=== PATIENT | female | born 1960 | race African-American/Black ===

== ENCOUNTER 2020-03-16 01:06 | Observation (INO) | payer OTHER ==
[~2020-03-16] VITALS: Ht 165.1 cm; Wt 118.6 kg
[2020-03-16] MEDS ORDERED: ASPIRIN 81 MG CHEW TAB PO ONE ×2 (01:15→03:00)
[2020-03-16 01:30] LABS: BASOPHILS # (AUTO) 0.1 (0.0-0.1); BASOPHILS % 1.1 % (0.0-1.0); EOSINOPHILS # (AUTO) 0.3 (0.0-0.4); EOSINOPHILS % 3.5 % (0.0-6.0); HEMATOCRIT 42.7 % (34.2-44.1); LYMPHOCYTES # (AUTO) 4.2 (1.0-3.2); LYMPHOCYTES % 50.7 % (18.0-39.1); MEAN CORPUSCULAR HEMOGLOBIN 32.1 pg (28-32); MEAN CORPUSCULAR HGB CONC 32.8 g/dL (31-35); MEAN CORPUSCULAR VOLUME 97.9 fL (81-99); MONOCYTES # (AUTO) 0.9 (0.2-0.8); MONOCYTES % 10.8 % (4.4-11.3); NEUTROPHILS # (AUTO) 2.8 (2.1-6.9); NEUTROPHILS % 33.5 % (38.7-80.0); PLATELET COUNT 263 x10e3/uL (140-360); RED BLOOD COUNT 4.36 x10e6/uL (3.6-5.1); RED CELL DISTRIBUTION WIDTH 12.9 % (11.7-14.4)
--- OUTSIDE RECORDS SUMMARY | 2020-03-16 01:53 | XMS REPORT | Clinical Summary ---
Author Author [facility] Organization [facility] Address Unknown Phone Unavailable Care Team Providers Care Pyrometer Temperature Regulator Name Role Phone Aster Rick MD PCP [phone] Allergies No Known Allergies Medications End Date Status Medication Sig Dispensed Refills Start Date Active potassium chloride Take 1 tablet 90 tablet 3 07/07 (K-TABS) 10 mEq extended by mouth 8 release daily for tabletIndications: replacement. Essential hypertension Active atorvastatin (LIPITOR) 80 Take 1 tablet 30 tablet 3 mg tabletIndications: by mouth at 8 Pure hypercholesterolemia bedtime nightly. Active clopidogrel (PLAVIX) 75 Take 1 tablet 30 tablet 3 mg tabletIndications: by mouth 8 Coronary artery disease daily. involving coronary bypass graft of [place] heart without angina pectoris Active losartan (COZAAR) 100 mg Take 1 tablet 30 tablet 3 tabletIndications: by mouth 8 Essential hypertension daily for HTN. Increased dose. Active aspirin (ASPIRIN) 81 mg Chew and 30 tablet 2 chewable swallow 1 8 tabletIndications: tablet by Coronary artery disease mouth daily. involving coronary bypass graft of [place] heart without angina pectoris Active nicotine (NICODERM CQ) 7 Apply 1 Patch 28 Patch 0 mg/24 hr to skin as 8 patchIndications: directed Essential hypertension, daily as Coronary artery disease needed for involving coronary bypass Other graft of [place] heart (nicotine without angina pectoris craving). Active famotidine (PEPCID) 20 mg Take 1 tablet 180 tablet 1 tabletIndications: by mouth 2 9 Gastroesophageal reflux times daily disease, esophagitis as needed for presence not specified Heartburn. Active furosemide (LASIX) 20 mg Take 1 tablet 30 tablet 5 tabletIndications: by mouth 9 Coronary artery disease daily. involving coronary bypass graft of [place] heart without angina pectoris Active metoprolol succinate Take 1 tablet 30 tablet 5 (TOPROL XL) 50 mg by mouth 9 extended release daily. tabletIndications: Coronary artery disease involving coronary bypass graft of [place] heart without angina pectoris Active amLODIPine (NORVASC) 5 mg Take 1 tablet 30 tablet 5 tabletIndications: by mouth 9 Essential hypertension daily. Active Problems Problem Noted Date HLD (hyperlipidemia) 07/07/2018 GERD (gastroesophageal reflux disease) 07/07/2018 Elevated troponin 07/06/2018 Chest pain 07/06/2018 Smoking 12/29/2017 Abdominal pain 12/07/2017 Chronic hepatitis C without hepatic coma 10/11/2016 Coronary artery disease involving coronary bypass gra ft of [place] heart 03/23/2016 without angina pectoris Primary osteoarthritis of both knees 03/23/2016 Essential hypertension 03/23/2016 BMI 39.0-39.9,adult 03/23/2016 Dietary counseling and surveillance 03/23/2016 NSTEMI (non-ST elevated myocardial infa rction) Systolic and diastolic CHF w/reduced LV function, NYHA class 4 Hypertensive urgency Immunizations Name Administration Dates Next Due Influenza Vaccine, 06/23/2017 Seasonal, Injectable Influenza, 08/06/2018 Vaccine<FLUCELVAX>(Multi- Dose) PNEUMOCOCCAL 23-VALPS 06/23/2017 VACCINE 25 MCG/0.5 ML INJECTION Tdap (Tetanus Toxoid, 06/23/2017 Reduced Diphtheria Toxoid And Acellular Pertussis, Absorbed) Family History Medical History Relation Name Comments Cancer Brother Cancer Father prostate Cancer Mother Cancer Sister Relation Name Status Comments Brother Father Mother Sister Social History Date Tobacco Use Types Packs/Day Years Used Current Every Day Smoker Cigarettes 0.5 45 Smokeless Tobacco: Never Used Tobacco Cessation: Ready to Quit: No; Co unseling Given: No Drinks/Week oz/Week Comments Alcohol Use 3 Cans of beer 0 Standard drinks or equivalent 3.0 Near daily Yes Food Insecurity Answer Date Recorded Within the past 12 months, you worried that your Never du e 11/05/2018 food would run out before you got money to buy more. Within the past 12 months, the food you bought Never true 11/05/2018 just didn't last and you didn't have mo tan to get more. Sex Assigned at Date Recorded Not on file Industry Job Start Date Occupation Not on file Not on file Not on file Travel End Travel History Travel Start No recent travel history available. Last Filed Vital Signs Not on file Plan of Treatment Health Maintenance Due Date Last Done Comments Breast Cancer Scrn 08/08/2019 08/08/2018, (Yearly) 07/25/2017, 06/11/2016 CORONARY ARTERY DISEASE 11/06/2019 11/05/2018, AGE 18 AND UP 01/02/2018, 05/18/2016 IMM Influenza Seasonal 04/23/2020 08/06/2018, Apr to September (>/= 19 yrs) 06/23/2017 Colonoscopy 10yr 12/05/2023 12/04/2013 Results Not on fileafter 03/16/2019 Insurance Type Payer Benefit Subscriber ID Effective Phone Address Plan / Dates Group [facility] xxxxxxxxxxxx 2018-P [address] [facility] [id number] [facility] [place] [id number] Advance Directives Date Inactivated Comments Code Status Date Activated 07/07/2018 5:29 PM Full Code 07/06/2018 11:31 PM
--- OUTSIDE RECORDS SUMMARY | 2020-03-16 01:53 | XMS REPORT | Continuity of Care Document ---
Author Author Fabrice Robertson LICHA LANGLEY Organization [facility] [employer] Address Unknown Phone Unavailable Care Team Providers Care Internal Audit Director Name Role Phone [facility] Information [employer] Unavailable Un available Problems Problem Status Onset Date Classification Date Reported Comments Source V76.12 - SCREEN MAMMOGRA Active 10/05/2011 [facility] Medications No Data Provided for This Section Allergies, Adverse Reactions, Alerts No Known Medication Allergies Immunizations No Data Provided for This Section Results No Data Provided for This Section Pathology Reports No Data Provided for This Section Diagnostic Reports Report Value Date Source Digital Mammo Screening [place] MA - DIGITAL MAMMO SCREENING [place] BILATERAL DIGITAL SCREENING MAMMOGRAM WITH CAD: 12/20/2012 CLINICAL: Screening. Current study was evaluated with a Computer Aided Detection (CAD) system. Comparison is made to exams dated: 10/14/2011 mammogram - [facility] - Outpatient Imaging and 03/20/2009 mammogram - [facility] Outpatient Imaging Department. The tissue of both breasts is predominantly fatty. There is a benign calcification in the right breast. No significant masses, calcifications, or other findings are seen in either breast. There has been no significant interval change. IMPRESSION: BENIGN There is no mammographic evidence of malignancy. A screening mammogram in one year is recommended. SUMMARY: SL: 15. Yasemin mathias/bill:12/21/2012 10:23:03 [employer]: Kymberly Solorzano [facility] letter sent: Normal exam Mammogram BI-RADS: 2 Benign 12/20/2012 ALANA Estevez Pelvis without contrast MRI REASON FOR EXAM: 789.00. Left lower quadrant pain. COMPARISON: Pelvic ultrasound 03/20/2009. TECHNIQUE: Unenhanced axial, coronal and sagittal MR images of the pelvis were performed. FINDINGS: The uterus and left ovary are surgically absent. The right ovary measures a maximal length of 2.5 cm and contains a 1.7 cm simple appearing cyst. (A 1.6 cm cyst/dominant follicle was reported in the right ovary on the prior pelvic ultrasound.) Mild diverticulosis of the sigmoid colon without demonstrable acute diverticulitis. Small nonspecific inguinal lymph nodes the largest measuring approximately 1 cm in short axis bilaterally. Mild asymmetric fatty prominence of the left inguinal ring concerning for a small inguinal hernia containing fat measuring a maximal diameter of approximately 2.5 cm. Tiny umbilical hernia containing fat measuring a maximal width of approximately 5 mm the more anterior extent not imaged on this examination. Degenerative changes of the visualized lower lumbar spine, bilateral sacroiliac joints, left superolateral acetabulum and pubic symphysis. No demonstrable abnormality of the partially distended urinary bladder, urethra, vagina or visualized musculature. No demonstrable pelvic mass or ascites. IMPRESSION: 1. Status post hysterectomy and left oop horectomy. 2. There is a 1.7 cm right ovarian cyst. A short interval follow-up pelvic ultrasound is suggested for reassessment. 3. Mild sigmoid diverticulosis. 4. Small nonspecific bilateral inguinal lymph nodes. 5. Small left inguinal hernia containing fat. 6. Tiny umbilical hernia containing fat. 7. Degenerative changes of the lumbar sp ine, bilateral sacroiliac joints, left superolateral acetabulum and pubic symphysis. Please correlate clinically and consider follow-up imaging as indicated. Dictation code: 15 12/20/2012 AARON Estevez Consultation Notes No Data Provided for This Section Discharge Summaries No Data Provided for This Section History and Physicals No Data Provided for This Section Vital Signs No Data Provided for This Section Encounters Location Location Details Encounter Type Encounter Number Reason For Visit Attending Provider ADM Date DC Date Status Source Outpatient [id number] V76.12 - SCREEN M ALESSANDRO CROSS 10/14/2011 Active [facility] Procedures No Data Provided for This Section Assessment and Plan No Data Provided for This Section Plan of Care No Data Provided for This Section Social History No Data Provided for This Section Family History No Data Provided for This Section Advance Directives No Data Provided for This Section Functional Status No Data Provided for This Section
--- OUTSIDE RECORDS SUMMARY | 2020-03-16 01:53 | XMS REPORT | Continuity of Care Document ---
Author Author [facility] t Organization [facility] t Address [address] [place] [address] Phone Unavailable Care Team Providers Care Pantry Worker Name Role Phone Merline PAEZ, Jaqui Rodarte PCP [phone] Patt PAEZ, Bonifacio Attphys Alonzo RN, A Lucy Attphys Unavailable Klaudia PAEZ, Deisy Mcclellan Attphys Funmi PAEZ, Adryan Attphys Catarino PAEZ, Layo Ryan Attphys Patt PAEZ, Jennifer Valdovinos Attphys [phone] DEISY RUDOLPH Attphys Unavailable JENNIFER BELTRE Admphys Unavailable Problems Condition Name Condition Details Condition Category Status Onset Date Resolution Date Last Treatment Date Treating Clinician Comments Source NSTEMI (non-ST elevated myocardial infarction) NSTEMI (non-ST elevated myocardial infarction) Disease Active 2019-10-17 00:00:00 [facility] HLD (hyperlipidemia) HLD (hyperlipidemia) Disease Active 00:00:00 [facility] GERD (gastroesophageal reflux disease) GERD (gastroesophagea l reflux disease) Disease Active 2018-07-07 00:00:00 [facility] Elevated troponin Elevated troponin Disease Active 2018-07-06 00:00:00 [facility] Chest pain Chest pain Disease Active 2018-07-06 00:00:00 [facility] Smoking Smoking Disease Active 2017-12-29 00:00:00 [facility] Abdominal pain Abdominal pain Disease Active 2017-12-07 00:00:00 [facility] Chronic hepatitis C without hepatic coma Chronic hepat itis C without hepatic coma Disease Active 2016-10-11 00:00:00 [facility] Coronary artery disease involving vang ry bypass graft of [place] heart without angina pectoris Coronary artery disease involving vang ry bypass graft of [place] heart without angina pectoris Disease Active 2016-03-23 00:00:00 [facility] Primary osteoarthritis of both knees Primary osteoarthritis of both knees Disease Active 2016-03-23 00:00:00 [facility] Essential hypertension Essential hypertension Disease Active 2016-03-23 00:00:00 [facility] BMI 39.0-39.9,adult BMI 39.0-39.9,adult Disease Active 2016-03-23 00:00 :00 [facility] Dietary counseling and surveillance Dietary counseling and surve illance Disease Active 2016-03-23 00:00:00 [facility] 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 Family History Family Member Diagnosis Comments Start Date Stop Date Source Natural brother Cancer [facility] alth Natural brother Diabetes [facility] Natural brother Hypertension [facility] Natural father Cancer [facility] Natural mother [facility] Natural sister Cancer [facility] Natural sister Diabetes [facility] Natural sister Hypertension [facility] Natural daughter Unremarkable [facility] Natural son Asthma [facility] Social History Social Habit Start Date Stop Date Quantity Comments Source History of tobacco use Cigarette Smoker [facility] Sex Assigned At [facility] Cigarettes smoked current (pack per day) - Reported 00:00:00 2019-10-18 00:00:00 [facility] Cigarette pack-years 2019-10-18 00:00:00 2019-10-18 00:00:00 [facility] Alcohol intake 2018-12-26 00:00:00 2018-12-26 00:00:00 Current drinker of alcohol (finding) [facility] SDOH Food Worry 2018-11-05 00:00:00 2018-11-05 00:00:00 1 [facility] SDAL Food Scarcity 2018-11-05 00:00:00 2018-11-05 00:00:00 1 [facility] Alcohol Comment 2017-12-07 00:00:00 2017-12-07 00:00:00 Near daily [facility] Smoking Status Start Date Stop Date Source Current every day smoker 2019-10-18 00:00:00 [facility] Medications Ordered Medication Name Filled Medication Name Start Date Stop Da te Current Medication? Ordering Clinician Indication Dosage Frequency Signature (SIG) Comments Components Source prasugreL (EFFIENT) 10 mg Tab tablet 2019-10-22 00:00:00 Ye s 10mg QD Take 1 tablet (10 mg total) by mouth daily. [facility] aspirin 81 MG EC tablet 2019-10-22 00:00:00 2020-10-21 23:59:00 No 81mg QD Take 1 tablet (81 mg total) by mouth daily. [facility] isosorbide mononitrate (IMDUR) 60 MG 24 hr tablet 2019-10-22 00:00:00 2020-10-21 23:59:00 No 60mg QD Take 1 tab let (60 mg total) by mouth daily. [facility] atorvastatin (LIPITOR) 40 MG tablet 2019-10-21 00:00:0 0 2020-10-20 23:59:00 No 40mg QD Take 1 tablet (40 mg total) by mouth nig htly. [facility] carvediloL (COREG) 6.25 MG tablet 2019-10-21 00:00:00 2020 23:59:00 No 6.25mg Q.5D Take 1 tablet (6.25 mg total) by mouth 2 (two) times daily. [facility] ranolazine (RANEXA) 500 MG 12 hr tablet 00:00:00 2020-10-20 23:59:00 No 500mg Q.5D Take 1 tablet (500 mg total) by mouth 2 (two) times daily. [facility] traMADoL (ULTRAM) 50 mg tablet 2019-10-21 00:00:00 2019-10-31 23 :59:00 No 50mg Take 1 tablet (50 mg total) by mouth every 6 (six) hours as needed for Pain for up to 10 days. Max Daily Amount: 200 mg [facility] furosemide (LASIX) 20 mg tablet 2018-11-05 00:00:00 Yes Coronary artery disease involving coronary bypass graft of [place] heart without angina pectoris 20mg QD Take 1 tablet by mouth daily. [facility] metoprolol succinate (TOPROL XL) 50 mg extended release tabl et 2018-11-05 00:00:00 Yes Coronary artery disease involving coronary bypass graft of [place] heart without angina pectoris 50mg QD Take 1 tablet by mout h daily. [facility] amLODIPine (NORVASC) 5 mg tablet 2018-11-05 00:00:00 Yes Essential hypertension 5mg QD Take 1 tablet by mouth daily. [facility] famotidine (PEPCID) 20 mg tablet 2018-08-06 00:00:00 Yes Gastroesophageal reflux disease, esophagitis presence not specified 20mg Take 1 tablet by mouth 2 times daily as needed for Heartburn. [facility] aspirin (ASPIRIN) 81 mg chewable tablet 2018-07-08 00:00:00 Yes Coronary artery disease involving coronary bypass graft of [place] heart without angina pectoris 81mg QD Chew and swallow 1 tablet by mouth daily. [facility] potassium chloride (K-TABS) 10 mEq extended release tablet 2018-07-07 00:00:00 Yes Essential hypertension 10meq QD Take 1 tablet by mouth daily for replacement. [facility] atorvastatin (LIPITOR) 80 mg tablet 2018-07-07 00:00:00 Yes Pure hypercholesterolemia 80mg Take 1 tablet by mouth at bedtime nig htly. [facility] clopidogrel (PLAVIX) 75 mg tablet 2018-07-07 00:00:00 Yes Coronary artery disease involving coronary bypass graft of [place] heart without angina pectoris 75mg QD Take 1 tablet by mouth daily. [facility] losartan (COZAAR) 100 mg tablet 2018-07-07 00:00:00 Yes Essential hypertension 100mg QD Take 1 tablet by mouth daily for HTN. Increas ed dose. [facility] nicotine (NICODERM CQ) 7 mg/24 hr patch 2018-07-07 00:00:00 Yes Coronary artery disease involving coronary bypass graft of [place] heart without angina pectoris 1{patch} Apply 1 Patch to ski n as directed daily as needed for Other (nicotine craving). [facility] magnesium hydroxide (MILK OF MAGNESIA) 400 mg/5 mL Susp 2014-07-16 00:00:00 Yes 30mL Take 30 mLs by mouth daily as needed. [facility] Immunizations Ordered Immunization Name Filled Immunization Name Date Status Comments Source Influenza, Vaccine<FLUCELVAX>(Multi-Dose) 2018-08-06 00:00 :00 Completed [facility] Influenza Vaccine, Seasonal, Injectable 2017-06-23 00:00:0 0 Completed [facility] PNEUMOCOCCAL 23-VALPS VACCINE 25 MCG/0.5 ML INJECTION 2017-06-23 00:00:00 Completed [facility] Tdap (Tetanus Toxoid, Reduced Diphtheria Toxoid And Acellular Pertussis, Absorbed) 2017-06-23 00:00:[address] [facility] Vital Signs Vital Name Observation Time Observation Value Comments Source Systolic blood pressure 2019-10-21 07:30:00 149 mm[Hg] [facility] Diastolic blood pressure 2019-10-21 07:30:00 87 mm[Hg] [facility] Heart rate 2019-10-21 07:30:00 68 /min [facility] Body temperature 2019-10-21 07:30:00 36.44 [place] [facility] Respiratory rate 2019-10-21 07:30:00 18 /min [facility] Oxygen saturation in Arterial blood by Pulse oximetry 10-20 07:30:00 94 [facility] Procedure Date / Time Performed Performing Clinician Sourc e VASCULAR DIAGRAM -SCAN 2020-01-15 15:25:17 Provider, Default [facility] VASCULAR DIAGRAM -SCAN 2019-10-24 12:51:23 Provider, Default [facility] CARDIAC CATH REPORT - SCAN 2019-10-22 10:20:58 Provider, Default Scanning [facility] REPORT OF PROCEDURE - ENDOSCOPY SCAN 2019-10-21 13:20:36 Pro vider, Default Scanning [facility] APTT 2019-10-21 03:51:00 Sen [facility] BASIC METABOLIC PANEL (7) 2019-10-21 03:51:00 [place], [facility] CBC (HEMOGRAM ONLY) 2019-10-21 03:51:00 [place], [facility] MAGNESIUM 2019-10-21 03:51:00 [place], [facility] PHOSPHORUS 2019-10-21 03:51:00 [place], [facility] APTT 2019-10-20 06:16:00 Sen [facility] BASIC METABOLIC PANEL (7) 2019-10-20 06:16:00 [place], [facility] CBC (HEMOGRAM ONLY) 2019-10-20 06:16:00 [place], [facility] MAGNESIUM 2019-10-20 06:16:00 [place], [facility] PHOSPHORUS 2019-10-20 06:16:00 [place], [facility] APTT 2019-10-19 23:36:00 Sen [facility] APTT 2019-10-19 16:56:00 Sen [facility] APTT 2019-10-19 10:20:00 Sen, [facility] APTT 2019-10-19 08:[facility] 2019-10-19 04:18:00 [facility], [facility] CBC (HEMOGRAM ONLY) 2019-10-19 04:18:00 [facility], [facility] TROPONIN I 2019-10-19 04:18:00 [place], [facility] MAGNESIUM 2019-10-19 04:18:00 [facility], [facility] PHOSPHORUS 2019-10-19 04:18:00 [facility], [facility] PROTHROMBIN TIME/INR 2019-10-19 04:18:00 [facility], [facility] APTT 2019-10-19 04:18:00 Itz Dela Cruz [facility] ECHOCARDIOGRAM REPORT - SCAN 2019-10-18 21:12:09 Manish Abrams lt [facility] TROPONIN I 2019-10-18 18:28:00 Eleuterio Rudolph [facility] APTT 2019-10-18 18:28:00 [facility] POCT-GLUCOSE METER 2019-10-18 16:23:00 [facility] POCT-GLUCOSE METER 2019-10-18 11:55:00 [facility] TROPONIN I 2019-10-18 11:28:00 Franki Llanos [facility] APTT 2019-10-18 11:28:00 Willi [facility] 2D ECHO W/ DOPPLER (CW/PW/COLOR) 2019-10-18 07:39:18 Vipul Beltre [facility] BASIC METABOLIC PANEL (7) 2019-10-18 04:41:00 Franki Llanos [facility] APTT 2019-10-18 04:41:00 Willi [facility] CBC W/PLT COUNT & AUTO DIFFERENTIAL 2019-10-18 04:41:00 Franki Llanos [facility] TROPONIN I 2019-10-18 00:03:00 Franki Llanos [facility] APTT 2019-10-18 00:03:00 Willi [facility] APTT 2019-10-17 21:32:00 Willi [facility] POCT-ACT 2019-10-17 20:39:00 [facility] POCT-GLUCOSE METER 2019-10-17 18:51:00 [facility] B-TYPE NATRIURETIC FACTOR (BNP) 2019-10-17 18:46:00 Millie Llanos [facility] L CATH & PCI 2019-10-17 18:15:00 Bonifacio Beltre [facility] TROPONIN I 2019-10-17 16:12:00 Eleuterio Rudolph [facility] XR CHEST 1 VIEW PORTABLE/BEDSIDE 2019-10-17 11:30:00 [facility]laudia [facility] BASIC METABOLIC PANEL (7) 2019-10-17 10:36:00 [facility]laudia [facility] MAGNESIUM 2019-10-17 10:36:00 Klaudia, [facility] TROPONIN I 2019-10-17 10:36:00 Klaudia [facility] CBC W/PLT COUNT & AUTO DIFFERENTIAL 2019-10-17 10:36:00 Jorge L Rudolph [facility] ECG 12-LEAD 2019-10-17 10:07:43 Unknown, Hl7 Doctor [facility] Plan of Care Planned Activity Planned Date Details Comments Source Future Scheduled Test 2023-12-05 00:00:00 Screening for aaron gnant neoplasm of colon (procedure) [code = 260035170] [facility] Future Scheduled Test 2020-04-23 00:00:00 IMM Influenza Seas onal Apr to September (>/= 19 yrs) [code = IMM Influenza Seasonal Apr to September (>/= 19 yrs)] [facility] Scheduled Test 2019-11-06 00:00:00 CORONARY ARTERY DI SEASE AGE 18 AND UP [code = CORONARY ARTERY DISEASE AGE 18 AND UP] [facility] Scheduled Test 2019-08-08 00:00:00 Breast Cancer Scrn (Yearly) [code = Breast Cancer Scrn (Yearly)] [facility] Encounters Start Date/Time End Date/Time Encounter Type Admission Type [facility] Care Department Encounter ID Source 2018-07-07 06:39:16 Inpatient [facility] [id number] M[facility] 2020-02-18 13:01:23 2020-02-18 14:15:36 Office Visit Bonifacio Beltre [facility] [id number] 2018-11-05 10:01:16 2018-11-05 10:01:16 Outpatient [facility] [id number] [facility] 2018-11-05 09:15:34 2018-11-05 09:15:34 Outpatient [facility] [id number] [facility] 2018-08-15 00:00:00 2018-08-15 00:00:00 Outpatient [facility] [id number] [facility] 2018-08-08 11:25:22 2018-08-08 11:25:22 Outpatient [facility] [id number] [facility] 2018-08-08 00:00:00 2018-08-08 00:00:00 Outpatient [facility] [id number] [facility] 2018-08-08 00:00:00 2018-08-08 00:00:00 Outpatient [facility] [id number] [facility] 2018-08-07 00:00:00 2018-08-07 00:00:00 Outpatient [facility] [id number] M[facility] 2018-08-06 14:10:06 2018-08-06 14:10:06 Outpatient [facility] [id number] [facility] 2018-07-06 12:53:49 2018-07-06 12:53:49 Emergency [facility] [id number] M[facility] 2018-07-06 11:25:51 2018-07-06 11:25:51 Inpatient [facility] [id number] [facility] 2018-07-06 09:49:21 2018-07-06 09:49:21 Outpatient [facility] [id number] [facility] 2018-05-29 00:00:00 2018-05-29 00:00:00 Outpatient [facility] [id number] [facility] 2018-03-28 00:00:00 2018-03-28 00:00:00 Outpatient [facility] [id number] M[facility] 2018-03-20 00:00:00 2018-03-20 00:00:00 Outpatient [facility] [id number] [facility] 2018-03-16 00:00:00 2018-03-16 00:00:00 Outpatient [facility] [id number] [facility] 2018-03-09 00:00:00 2018-03-09 00:00:00 Outpatient [facility] [id number] [facility] 2018-01-02 13:42:40 2018-01-02 13:42:40 Outpatient [facility] [id number] [facility] 2018-01-02 13:02:19 2018-01-02 13:02:19 Outpatient [facility] [id number] [facility] 2017-12-29 14:57:25 2017-12-29 14:57:25 Outpatient [facility] [id number] [facility] 2017-12-07 06:07:29 2017-12-07 06:07:29 Emergency [facility] [id number] M[facility] 2017-12-07 03:50:04 2017-12-07 03:50:04 Emergency [facility] [id number] [facility] 2017-12-05 14:54:21 2017-12-05 14:54:21 Outpatient [facility] [id number] [facility] 2017-11-30 14:14:45 2017-11-30 14:14:45 Outpatient [facility] [id number] [facility] 2017-09-21 00:00:00 2017-09-21 00:00:00 Outpatient [facility] [id number] [facility] 2017-07-25 10:02:49 2017-07-25 10:02:49 Outpatient [facility] [id number] M[facility] 2017-07-04 00:00:00 2017-07-04 00:00:00 Outpatient [facility] [id number] M[facility] 2017-06-23 13:08:32 2017-06-23 13:08:32 Outpatient [facility] [id number] M[facility] 2017-06-13 07:39:47 2017-06-13 07:39:47 Outpatient [facility] [id number] M[facility] 2017-06-08 14:00:34 2017-06-08 14:00:34 Outpatient [facility] [id number] M[facility] Results Test Description Test Time Test Comments Results Result Comments Source Basic Metabolic Panel 2019-10-21 04:29:00 Test Item Sodium (test code = 2951-2) 137 meq/L 136-145 Potassium (test code = 2823-3) 4.0 meq/L 3.5-5.1 Chloride (test code = 2075-0) 107 meq/L 98-107 CO2 (test code = 8-9) 23 meq/L 22-29 BUN (test code = 3094-0) 16 mg/dL 7-21 Creatinine (test code = 2160-0) 0.99 mg/dL 0.57-1.25 Glucose (test code = 2345-7) 87 mg/dL 70-105 Calcium (test code = 37793-4) 8.6 mg/dL 8.4-10.2 EGFR (test code = 10303-0) 70 mL/min/1.73 sq m ESTIMATED GFR IS NOT ACCURATE CREATININE CLEARANCE IN PREDICTING GLOMERULAR FILTRATION RATE. ESTIMATED GFR IS NOT APPLICABLE FOR DIALYSIS PATIENTS. MICHELLE (test code = MICHELLE) Electronic Equipment Repairer ID - LUIS CARLOS M [facility] 04:[facility]00* Test Item Value Reference Range Interpretation Comments Magnesium (test code = 55208-4) 1.9 mg/dL 1.6-2.6 MICHELLE (test code = MICHELLE) Electronic Equipment Repairer ID - LUIS CARLOS M Lab Interpretation (test code = 69192-8) Normal [facility] 04:29:00* Test Item Value Reference Range Interpretation Comments Phosphorus (test code = 2777-1) 4.2 mg/dL 2.3-4.7 MICHELLE (test code = MICHELLE) Electronic Equipment Repairer ID - LUIS CARLOS M Lab Interpretation (test code = 62164-7) Normal [facility]30 04:29:00* Test Item Value Reference Range Interpretation Comments PHOSPHORUS (BEAKER) (test code = 604) 4.2 mg/dL 2.3-4.7 Electronic Equipment Repairer ID - LUIS CARLOS [id number] 04:29:00* Test Item Value Reference Range Interpretation Comments MAGNESIUM (BEAKER) (test code = 627) 1.9 mg/dL 1.6-2.6 Electronic Equipment Repairer KELLEE ALDRIDGE [employer] METABOLIC [id number] 04:29:00* Test Item Value Reference Range Interpretation Comments SODIUM (BEAKER) (test code = 381) 137 meq/L 136-145 POTASSIUM (BEAKER) (test code = 379) 4.0 meq/L 3.5-5.1 CHLORIDE (BEAKER) (test code = 382) 107 meq/L 98-107 CO2 (BEAKER) (test code = 355) 23 meq/L 22-29 BLOOD UREA NITROGEN (BEAKER) (test code = 354) 16 mg/dL 7-21 CREATININE (BEAKER) (test code = 358) 0.99 mg/dL 0.57-1.25 GLUCOSE RANDOM (BEAKER) (test code = 652) 87 mg/dL 70-105 CALCIUM (BEAKER) (test code = 697) 8.6 mg/dL 8.4-10.2 EGFR (BEAKER) (test code = 1092) 70 mL/min/1.73 sq m ESTIMATED GFR IS NOT ACCURATE CREATININE CLEARANCE IN PREDICTING GLOMERULAR FILTRATION RATE. ESTIMATED GFR IS NOT APPLICABLE FOR DIALYSIS PATIENTS. Electronic Equipment Repairer ID Alisa ALDRIDGE [id number] 04:10:00* Test Item Value Reference Range Interpretation Comments PTT (test code = 46306-6) 30.6 22.5- 36.0 seconds Lab Interpretation (test code = 83542-2) [facility]* Test Item Value Reference Range Interpretation Comments PARTIAL THROMBOPLASTIN TIME (BEAKER) (test code = 760) 30.6 seconds 22.5-36.0 CBC (Hemogram only)2019-10-21 04:03:00* Test Item Value Reference Range Interpretation Comments WBC (test code = 6690-2) 8.9 3.5- 10.5 K/L RBC (test code = 789-8) 4.08 3.93- 5.22 M/L MCHC (test code = 786-4) 32.2 32.2- 35.5 GM/DL Hematocrit (test code = 4544-3) 39.1 % 34.1-44.9 MCV (test code = 787-2) 95.8 fL 79.4-94.8 H MCH (test code = 785-6) 30.9 pg 25.6-32.2 RDW (test code = 788-0) 12.6 % 11.7-14.4 Platelets (test code = 777-3) 222 150- 450 K/CU MM MPV (test code = 97404-5) 11.3 fL 9.4-12.3 nRBC (test code = 413) 0 0- 0 /100 WBC Lab Interpretation (test code = 62254-4) Abnormal [facility] (HEMOGRAM ONLY)2019-10-21 04:03:00* Test Item Value Reference Range Interpretation Comments WHITE BLOOD CELL COUNT (BEAKER) (test code = 775) 8.9 K/ L 3.5- 10.5 RED BLOOD CELL COUNT (BEAKER) (test code = 761) 4.08 M/ L 3.93-5 .22 HEMOGLOBIN (BEAKER) (test code = 410) 12.6 GM/DL 11.2-15.7 HEMATOCRIT (BEAKER) (test code = 411) 39.1 % 34.1-44.9 MEAN CORPUSCULAR VOLUME (BEAKER) (test code = 753) 95.8 fL 79. 4-94.8 H MEAN CORPUSCULAR HEMOGLOBIN (BEAKER) (test code = 751) 30.9 pg 25.6-32.2 MEAN CORPUSCULAR HEMOGLOBIN CONC (BEAKER) (test code = 752) 32.2 GM/DL 32.2-35.5 RED CELL DISTRIBUTION WIDTH (BEAKER) (test code = 412) 12.6 % 11.7-14.4 PLATELET COUNT (BEAKER) (test code = 756) 222 K/CU MM 150-450 MEAN PLATELET VOLUME (BEAKER) (test code = 754) 11.3 fL 9.4-12 .3 NUCLEATED RED BLOOD CELLS (BEAKER) (test code = 413) 0 /100 WBC 0 -0 [id number] 07:05:00* Test Item Value Reference Range Interpretation Comments PHOSPHORUS (BEAKER) (test code = 604) 4.2 mg/dL 2.3-4.7 Electronic Equipment Repairer ID - LUIS CARLOS [id number] 07:05:00* Test Item Value Reference Range Interpretation Comments MAGNESIUM (BEAKER) (test code = 627) 2.0 mg/dL 1.6-2.6 Electronic Equipment Repairer ID - LUIS CARLOS MBASIC METABOLIC [id number] 07:05:00* Test Item Value Reference Range Interpretation Comments SODIUM (BEAKER) (test code = 381) 139 meq/L 136-145 POTASSIUM (BEAKER) (test code = 379) 3.7 meq/L 3.5-5.1 CHLORIDE (BEAKER) (test code = 382) 108 meq/L 98-107 H CO2 (BEAKER) (test code = 355) 24 meq/L 22-29 BLOOD UREA NITROGEN (BEAKER) (test code = 354) 20 mg/dL 7-21 CREATININE (BEAKER) (test code = 358) 1.01 mg/dL 0.57-1.25 GLUCOSE RANDOM (BEAKER) (test code = 652) 89 mg/dL 70-105 CALCIUM (BEAKER) (test code = 697) 8.7 mg/dL 8.4-10.2 EGFR (BEAKER) (test code = 1092) 68 mL/min/1.73 sq m ESTIMATED GFR IS NOT ACCURATE CREATININE CLEARANCE IN PREDICTING GLOMERULAR FILTRATION RATE. ESTIMATED GFR IS NOT APPLICABLE FOR DIALYSIS PATIENTS. Electronic Equipment Repairer ID - LUIS CARLOS [id number] 06:56:00* Test Item Value Reference Range Interpretation Comments PARTIAL THROMBOPLASTIN TIME (BEAKER) (test code = 760) 94.3 seconds 22.5-36.0 H CBC (HEMOGRAM ONLY)2019-10-20 06:49:00* Test Item Value Reference Range Interpretation Comments WHITE BLOOD CELL COUNT (BEAKER) (test code = 775) 8.7 K/ L 3.5- 10.5 RED BLOOD CELL COUNT (BEAKER) (test code = 761) 4.16 M/ L 3.93-5 .22 HEMOGLOBIN (BEAKER) (test code = 410) 13.3 GM/DL 11.2-15.7 HEMATOCRIT (BEAKER) (test code = 411) 40.1 % 34.1-44.9 MEAN CORPUSCULAR VOLUME (BEAKER) (test code = 753) 96.4 fL 79. 4-94.8 H MEAN CORPUSCULAR HEMOGLOBIN (BEAKER) (test code = 751) 32.0 pg 25.6-32.2 MEAN CORPUSCULAR HEMOGLOBIN CONC (BEAKER) (test code = 752) 33.2 GM/DL 32.2-35.5 RED CELL DISTRIBUTION WIDTH (BEAKER) (test code = 412) 12.8 % 11.7-14.4 PLATELET COUNT (BEAKER) (test code = 756) 188 K/CU MM 150-450 MEAN PLATELET VOLUME (BEAKER) (test code = 754) 11.5 fL 9.4-12 .3 NUCLEATED RED BLOOD CELLS (BEAKER) (test code = 413) 0 /100 WBC 0 -0 [id number] 00:24:00* Test Item Value Reference Range Interpretation Comments PARTIAL THROMBOPLASTIN TIME (BEAKER) (test code = 760) 65.9 seconds 22.5-36.0 H [id number] 17:25:00* Test Item Value Reference Range Interpretation Comments PARTIAL THROMBOPLASTIN TIME (BEAKER) (test code = 760) 62.3 seconds 22.5-36.0 H [id number] 10:39:00* Test Item Value Reference Range Interpretation Comments PARTIAL THROMBOPLASTIN TIME (BEAKER) (test code = 760) 67.1 seconds 22.5-36.0 H POC-Glucose [id number] 08:56:00* Test Item Value Reference Range Interpretation Comments POC-Glucose Meter (test code = 1538) 95 mg/dL 70-110 : Notified RN/MD: TESTED AT [address], [address]: Electronic Equipment Repairer/Appliance Line Assembler ID = [id number] for NAVYA HOLT Lab Interpretation (test code = 36050-2) [facility] [id number] 08:56:00* Test Item Value Reference Range Interpretation Comments POC-GLUCOSE METER (BEAKER) (test code = 1538) 95 mg/dL 70-110 : Notified RN/MD: TESTED AT [address], [address]: Electronic Equipment Repairer/Appliance Line Assembler ID = [id number] for NAVYA HOLT [id number] 08:48:00* Test Item Value Reference Range Interpretation Comments PARTIAL THROMBOPLASTIN TIME (BEAKER) (test code = 760) 126.4 sec onds 22.5-36.0 H [id number] 07:35:00* Test Item Value Reference Range Interpretation Comments PARTIAL THROMBOPLASTIN TIME (BEAKER) (test code = 760) 163.5 sec onds 22.5-36.0 HH TROPONIN [id number] 05:39:00* Test Item Value Reference Range Interpretation Comments TROPONIN I (BEAKER) (test code = 397) 4.77 ng/mL 0.00-0.03 HH Troponin I (TnI) levels must be interpreted in the context of the presenting sym ptoms and the clinical findings. Elevated TnI levels indicate myocardial damage, but are not specific for ischemic heart disease. Elevated TnI levels are seen in patients with other cardiac conditions (including myocarditis and congestive h eart failure), and slight TnI elevations occur in patients with other conditions , including sepsis, renal failure, acidosis, acute neurological disease, and per sistent tachyarrhythmia.Electronic Equipment Repairer ID - PIAYA LTroponin [id number] 05:38:00* Test Item Value Reference Range Interpretation Comments Troponin I (test code = 52459-5) 4.93 ng/mL 0-0.03 HH MICHELLE (test code = MICHELLE) Troponin I (TnI) levels must be interpreted in the context of the presenting symptoms and the clinical findings. Elevated TnI levels indicate myocardial damage, but are not specific for ischemic heart disease. Elevated TnI levels are seen in patients with other cardiac conditions (including myocarditis and congestive heart failure), and slight TnI elevations occur in patients with other conditions, including sepsis, renal failure, acidosis, acute neurological disease, and persistent tachyarrhythmia.Electronic Equipment Repairer ID - PIAYA L Lab Interpretation (test code = 98029-8) [facility] [id number] 05:38:00* Test Item Value Reference Range Interpretation Comments TROPONIN I (BEAKER) (test code = 397) 4.93 ng/mL 0.00-0.03 HH Troponin I (TnI) levels must be interpreted in the context of the presenting sym ptoms and the clinical findings. Elevated TnI levels indicate myocardial damage, but are not specific for ischemic heart disease. Elevated TnI levels are seen in patients with other cardiac conditions (including myocarditis and congestive h eart failure), and slight TnI elevations occur in patients with other conditions , including sepsis, renal failure, acidosis, acute neurological disease, and per sistent tachyarrhythmia.Electronic Equipment Repairer ID - SUSAN [id number] 05:38:00* Test Item Value Reference Range Interpretation Comments MAGNESIUM (BEAKER) (test code = 627) 2.1 mg/dL 1.6-2.6 Specimen slightly hemolyzed Electronic Equipment Repairer ID - SUSAN [id number] 05:38:00* Test Item Value Reference Range Interpretation Comments PHOSPHORUS (BEAKER) (test code = 604) 4.5 mg/dL 2.3-4.7 Specimen slightly hemolyzed Electronic Equipment Repairer ID - SUSAN LBASIC METABOLIC [id number] 05:38:00* Test Item Value Reference Range Interpretation Comments SODIUM (BEAKER) (test code = 381) 136 meq/L 136-145 POTASSIUM (BEAKER) (test code = 379) 3.7 meq/L 3.5-5.1 Specimen slightly hemolyzed CHLORIDE (BEAKER) (test code = 382) 103 meq/L 98-107 CO2 (BEAKER) (test code = 355) 23 meq/L 22-29 BLOOD UREA NITROGEN (BEAKER) (test code = 354) 23 mg/dL 7-21 H CREATININE (BEAKER) (test code = 358) 1.35 mg/dL 0.57-1.25 H Specimen slightly hemolyzed GLUCOSE RANDOM (BEAKER) (test code = 652) 105 mg/dL 70-105 CALCIUM (BEAKER) (test code = 697) 8.6 mg/dL 8.4-10.2 EGFR (BEAKER) (test code = 1092) 49 mL/min/1.73 sq m ESTIMATED GFR IS NOT ACCURATE CREATININE CLEARANCE IN PREDICTING GLOMERULAR FILTRATION RATE. ESTIMATED GFR IS NOT APPLICABLE FOR DIALYSIS PATIENTS. Electronic Equipment Repairer ID - SUSAN LProthrombin time/[id number] 05:23:00* Test Item Value Reference Range Interpretation Comments Protime (test code = 5902-2) 14.2 11.9- 14.2 seconds INR (test code = 6301-6) 1.1 <=5.9 MICHELLE (test code = MICHELLE) Effective 12/19/2018: PT Refe rence Range ChangeNew: 11.9- 14.2 Previous: 11.7-14.7 RECOMMENDED COUMADIN/WARFARIN INR THERAPY RANGESSTANDARD DOSE: 2.0-3.0 Includes: PROPHYLAXIS for venous thrombosis, sys temic embolization; TREATMENT for venous thrombosis and/or pulmonary embolus.HIGH RISK: Target INR is 2.5-3.5 for patients wiht mechanical heart valves. Lab Interpretation (test code = 83577-9) Normal [facility] CampusPROTHROMBIN TIME/[id number] 05:23:00* Test Item Value Reference Range Interpretation Comments PROTIME (BEAKER) (test code = 759) 14.2 seconds 11.9-14.2 INR (BEAKER) (test code = 370) 1.1 <=5.9 Effective 12/19/2018: PT Reference Range ChangeNew: 11.9-14.2 Previous: 11.7-14. 7RECOMMENDED COUMADIN/WARFARIN INR THERAPY RANGESSTANDARD DOSE: 2.0-3.0 Include s: PROPHYLAXIS for venous thrombosis, systemic embolization; TREATMENT for venou s thrombosis and/or pulmonary embolus.HIGH RISK: Target INR is 2.5-3.5 for patie nts wiht mechanical heart valves.CBC (HEMOGRAM ONLY)2019-10-19 05:07:00* Test Item Value Reference Range Interpretation Comments WHITE BLOOD CELL COUNT (BEAKER) (test code = 775) 10.5 K/ L 3.5- 10.5 RED BLOOD CELL COUNT (BEAKER) (test code = 761) 4.26 M/ L 3.93-5 .22 HEMOGLOBIN (BEAKER) (test code = 410) 13.3 GM/DL 11.2-15.7 HEMATOCRIT (BEAKER) (test code = 411) 40.7 % 34.1-44.9 MEAN CORPUSCULAR VOLUME (BEAKER) (test code = 753) 95.5 fL 79. 4-94.8 H MEAN CORPUSCULAR HEMOGLOBIN (BEAKER) (test code = 751) 31.2 pg 25.6-32.2 MEAN CORPUSCULAR HEMOGLOBIN CONC (BEAKER) (test code = 752) 32.7 GM/DL 32.2-35.5 RED CELL DISTRIBUTION WIDTH (BEAKER) (test code = 412) 12.7 % 11.7-14.4 PLATELET COUNT (BEAKER) (test code = 756) 210 K/CU MM 150-450 MEAN PLATELET VOLUME (BEAKER) (test code = 754) 11.1 fL 9.4-12 .3 NUCLEATED RED BLOOD CELLS (BEAKER) (test code = 413) 0 /100 WBC 0 -0 TROPONIN [id number] 19:13:00* Test Item Value Reference Range Interpretation Comments TROPONIN I (BEAKER) (test code = 397) 7.04 ng/mL 0.00-0.03 HH Troponin I (TnI) levels must be interpreted in the context of the presenting sym ptoms and the clinical findings. Elevated TnI levels indicate myocardial damage, but are not specific for ischemic heart disease. Elevated TnI levels are seen in patients with other cardiac conditions (including myocarditis and congestive h eart failure), and slight TnI elevations occur in patients with other conditions , including sepsis, renal failure, acidosis, acute neurological disease, and per sistent tachyarrhythmia.Electronic Equipment Repairer ID - [id number] 18:51:00* Test Item Value Reference Range Interpretation Comments PARTIAL THROMBOPLASTIN TIME (BEAKER) (test code = 760) 80.5 seconds 22.5-36.0 H TROPONIN [id number] 12:37:00* Test Item Value Reference Range Interpretation Comments TROPONIN I (BEAKER) (test code = 397) 6.65 ng/mL 0.00-0.03 HH Troponin I (TnI) levels must be interpreted in the context of the presenting sym ptoms and the clinical findings. Elevated TnI levels indicate myocardial damage, but are not specific for ischemic heart disease. Elevated TnI levels are seen in patients with other cardiac conditions (including myocarditis and congestive h eart failure), and slight TnI elevations occur in patients with other conditions , including sepsis, renal failure, acidosis, acute neurological disease, and per sistent tachyarrhythmia.Electronic Equipment Repairer ID - [id number] 12:14:00* Test Item Value Reference Range Interpretation Comments PARTIAL THROMBOPLASTIN TIME (BEAKER) (test code = 760) 63.2 seconds 22.5-36.0 H POCT-GLUCOSE [id number] 12:09:00* Test Item Value Reference Range Interpretation Comments POC-GLUCOSE METER (BEAKER) (test code = 1538) 99 mg/dL 70-110 : Notified RN/MD: TESTED AT [facility] [address], [address]: Electronic Equipment Repairer/Appliance Line Assembler ID = [id number] for NAVYA HOLT 2D Echo W/Doppler(CW/PW/Color)2019-10-18 10:54:46Ejection FractionSLEH ECHO HEARTLAB MKCKESSON CPACSInterface, External Ris In - 10/18/2019 10:55 AM CDTTransthoracic Echocardiography Report (TTE) Demographics Patient Name LICHA CARTER Date of Study 10/18/2019 SHIVAM Gender Female Visit Number [id number] Race Unknown Room Number 2C21 Number Date of 1960 Referring Physician PHILIPPE Duron Age 58 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 LV endocardium is adequately visualized with IV ultrasound enhancing agent. The left ventricle is chamber size (by vol index) is normal (female - LVED vol - 29-61ml/m2). Mild concentric LV hypertrophy. The following segment(s) appear akinetic: basal inferior, inferoseptal . The other segments contract normally. Global LV systolic function lower limits of normal . Estimated LVEF by qualitative assessment is lower limits of normal (50-55%) . Grade 1 diastolic dysfunction (impaired relaxation and low-normal LA pressure). 2. Normal right ventricle structure and function based on limited views. 3. No significant valvular abnormalities 4. Unable to estimate peak systolic PA pressure; inadequate TR velocity signal. Previous Study No prior exam available for comparison. Signature - Electronically s igned by Poli Juarez MD(Interpreting physician) on 10/18/2019 10:54 AM -------- Findings Technical Darin lity: Technically adequate exam. Left Ventricle LV endocardium is adequa tely visualized with IV ultrasound enhancing agent. The l eft ventricle is chamber size (by vol index) is normal (f emale - LVED vol - 29-61ml/m2). Mi ld concentric LV hypertrophy. The following segment(s) ap pear akinetic: basal inferior, inferoseptal . The other s egments contract normally. Global LV systolic function lo wer limits of normal . Estimated LVEF by qualitative assessment is lower limits of normal (50-55%) . Grade 1 diastolic dysfunction (impaired relaxation and low-normal LA pressure). Left Atrium LA size is normal . Right Ventricle Normal right ventricle structure and function based on limited views. Right Atrium Grossly normal right a trium. Aortic Valve Mild AoV cusp thickening. No evidence of aortic stenosis. No evidence of aortic reg urgitation. Mitral Valve Mild MV leaflet thickening. Trace mitral regurgitation. Tricuspid Valve A trace of tricuspid regurgitation. Unable to estimate peak systolic PA pressu re; inadequate TR velocity signal. Normal TV structure and function by available views and Doppler. Pulmonic Valve Normal PV structure and function by limited vie ws and Doppler. A trace of pulmona ry regurgitation. Aorta Aortic root size (SInus of Valsalva di ameter) is normal . Pericardium No evidence o f pericardial effusion. IVC/SVC/PA/PV/Pleural The estimated RA pressure by IVC dynamics 0-5mmHg . Chambers/Structures Left Atrium LA Dimension: 3.34 cm LA Area: 18.69 cm^2 LA Volume: 53.23 ml LA Vol. Index: 25 ml/m^2 Left Ventricle LVIDd: 4.22 cm LV Septum Diastolic: 1.18 cm LV PW Diastolic: 1.19 cm LVEDV Kinsey's:77.52 ml LVESV Kinsey's:35.74 ml LVEF Kinsey's: 53.9 % LVEDVI: 36 ml/m^2 L VESVI: 17 ml/m^2 LVOT Diameter: 2.1 cm Aorta Ao Root S of Sulema.: 3.03 cm Doppler /Quantitative Measurements Mitral Valve MV Peak E-Wave: 0.48 m/s M V Peak A-Wave: 1.07 m/s E/A Ratio: 0.45 Peak Gradient: 0.94 mmHg Deceleration Time: 297.4 msec MV Ivan. Peak: Tissue Doppler E' Lateral Velocity: 0.04 m/s A' Lateral Velocity: 0.06 m/s E/E': 11.27 LVOT Peak Velocity: 1.09 m/s Peak Gradient: 4.74 mmHg Mean Velocity: 0.75 m/s Mean Gradient: 2.57 mmHg LVOT Diameter: 2.1 cm LVOT VTI: 20.34 cm LVOT Area: 3.46 cm^2 LVOT SV:70.41 ml LVOT CO: 4.86 l/min LVOT CI: 2.28 l/min/m^2 [facility] [id number] 06:34:22 Interface, External Ris In - 10/18/2019 6:34 AM CDTVentricular Rate 64 BPMAtria l Rate 64 BPMP-R Interval 146 msQRS Duration 88 msQ-T Interval 420 msQTC Calcula tion(Bazett) 433 msP [place] 58 degreesR [place] 60 degreesT [place] 133 degreesNormal si nus rhythmPossible Left atrial enlargementST & T wave abnormality, consider lateral ischemiaAbnormal ECGNo previous ECGs availableConfirmed by MD SARAH, TEAGAN Arguelles ([id number]) on 10/18/2019 6:34:19 [facility] CenterBASIC [facility]OLIC [id number] 05:17:00* Test Item Value Reference Range Interpretation Comments SODIUM (BEAKER) (test code = 381) 136 meq/L 136-145 POTASSIUM (BEAKER) (test code = 379) 3.8 meq/L 3.5-5.1 Specimen slightly hemolyzed CHLORIDE (BEAKER) (test code = 382) 104 meq/L 98-107 CO2 (BEAKER) (test code = 355) 23 meq/L 22-29 BLOOD UREA NITROGEN (BEAKER) (test code = 354) 14 mg/dL 7-21 CREATININE (BEAKER) (test code = 358) 1.11 mg/dL 0.57-1.25 Specimen slightly hemolyzed GLUCOSE RANDOM (BEAKER) (test code = 652) 100 mg/dL 70-105 CALCIUM (BEAKER) (test code = 697) 8.8 mg/dL 8.4-10.2 EGFR (BEAKER) (test code = 1092) 61 mL/min/1.73 sq m ESTIMATED GFR IS NOT ACCURATE CREATININE CLEARANCE IN PREDICTING GLOMERULAR FILTRATION RATE. ESTIMATED GFR IS NOT APPLICABLE FOR DIALYSIS PATIENTS. Electronic Equipment Repairer ID - SUSAN [id number] 05:07:00* Test Item Value Reference Range Interpretation Comments PARTIAL THROMBOPLASTIN TIME (BEAKER) (test code = 760) 35.7 seconds 22.5-36.0 CBC with platelet count + automated [id number] 05:03:00* Test Item Value Reference Range Interpretation Comments WBC (test code = 6690-2) 8.8 3.5- 10.5 K/L RBC (test code = 789-8) 4.55 3.93- 5.22 M/L MCHC (test code = 786-4) 33.3 32.2- 35.5 GM/DL Hematocrit (test code = 4544-3) 43.6 % 34.1-44.9 MCV (test code = 787-2) 95.8 fL 79.4-94.8 H MCH (test code = 785-6) 31.9 pg 25.6-32.2 RDW (test code = 788-0) 12.8 % 11.7-14.4 Platelets (test code = 777-3) 242 150- 450 K/CU MM MPV (test code = 79068-8) 11.2 fL 9.4-12.3 nRBC (test code = 413) 0 0- 0 /100 WBC % Neutros (test code = 429) 64 % % Lymphs (test code = 430) 23 % % Monos (test code = 431) 11 % % Eos (test code = 432) 1 % % Baso (test code = 437) 1 % # Neutros (test code = 670) 5.70 1.56- 6.13 K/L # Lymphs (test code = 414) 2.05 1.18- 3.74 K/L # Monos (test code = 415) 0.96 0.24- 0.36 K/L H # Eos (test code = 416) 0.04 0.04- 0.36 K/L # Baso (test code = 417) 0.05 0.01- 0.08 K/L Immature Granulocytes-Relative (test code = 2801) 1 % 0-1 Lab Interpretation (test code = 42592-8) Abnormal [facility] W/PLT COUNT & AUTO [id number] 05:03:00* Test Item Value Reference Range Interpretation Comments WHITE BLOOD CELL COUNT (BEAKER) (test code = 775) 8.8 K/ L 3.5- 10.5 RED BLOOD CELL COUNT (BEAKER) (test code = 761) 4.55 M/ L 3.93-5 .22 HEMOGLOBIN (BEAKER) (test code = 410) 14.5 GM/DL 11.2-15.7 HEMATOCRIT (BEAKER) (test code = 411) 43.6 % 34.1-44.9 MEAN CORPUSCULAR VOLUME (BEAKER) (test code = 753) 95.8 fL 79. 4-94.8 H MEAN CORPUSCULAR HEMOGLOBIN (BEAKER) (test code = 751) 31.9 pg 25.6-32.2 MEAN CORPUSCULAR HEMOGLOBIN CONC (BEAKER) (test code = 752) 33.3 GM/DL 32.2-35.5 RED CELL DISTRIBUTION WIDTH (BEAKER) (test code = 412) 12.8 % 11.7-14.4 PLATELET COUNT (BEAKER) (test code = 756) 242 K/CU MM 150-450 MEAN PLATELET VOLUME (BEAKER) (test code = 754) 11.2 fL 9.4-12 .3 NUCLEATED RED BLOOD CELLS (BEAKER) (test code = 413) 0 /100 WBC 0 -0 NEUTROPHILS RELATIVE PERCENT (BEAKER) (test code = 429) 64 % LYMPHOCYTES RELATIVE PERCENT (BEAKER) (test code = 430) 23 % MONOCYTES RELATIVE PERCENT (BEAKER) (test code = 431) 11 % EOSINOPHILS RELATIVE PERCENT (BEAKER) (test code = 432) 1 % BASOPHILS RELATIVE PERCENT (BEAKER) (test code = 437) 1 % NEUTROPHILS ABSOLUTE COUNT (BEAKER) (test code = 670) 5.70 K/ L 1.56-6.13 LYMPHOCYTES ABSOLUTE COUNT (BEAKER) (test code = 414) 2.05 K/ L 1.18-3.74 MONOCYTES ABSOLUTE COUNT (BEAKER) (test code = 415) 0.96 K/ L 0. 24-0.36 H EOSINOPHILS ABSOLUTE COUNT (BEAKER) (test code = 416) 0.04 K/ L 0.04-0.36 BASOPHILS ABSOLUTE COUNT (BEAKER) (test code = 417) 0.05 K/ L 0. 01-0.08 IMMATURE GRANULOCYTES-RELATIVE PERCENT (BEAKER) (test code = 2801) 1 % 0-1 TROPONIN [id number] 00:40:00* Test Item Value Reference Range Interpretation Comments TROPONIN I (BEAKER) (test code = 397) 8.44 ng/mL 0.00-0.03 HH Troponin I (TnI) levels must be interpreted in the context of the presenting sym ptoms and the clinical findings. Elevated TnI levels indicate myocardial damage, but are not specific for ischemic heart disease. Elevated TnI levels are seen in patients with other cardiac conditions (including myocarditis and congestive h eart failure), and slight TnI elevations occur in patients with other conditions , including sepsis, renal failure, acidosis, acute neurological disease, and per sistent tachyarrhythmia.Electronic Equipment Repairer ID - SUSAN [id number] 00:30:00* Test Item Value Reference Range Interpretation Comments PARTIAL THROMBOPLASTIN TIME (BEAKER) (test code = 760) 153.0 sec onds 22.5-36.0 HH 6 hours after starting heparin infusion and as indicated per sliding scalePOCT- GLUCOSE [id number] 22:18:00* Test Item Value Reference Range Interpretation Comments POC-GLUCOSE METER (BEAKER) (test code = 1538) 89 mg/dL 70-110 : TESTED AT [facility] [address], [address]: Electronic Equipment Repairer/Appliance Line Assembler ID = [id number] for Jesus AlbertoMal lauine [id number] 22:01:00* Test Item Value Reference Range Interpretation Comments PARTIAL THROMBOPLASTIN TIME (BEAKER) (test code = 760) > seconds 22.5-36.0 HH POC ACTIVATED CLOTTING [id number] 20:58:00* Test Item Value Reference Range Interpretation Comments Activated Clotting Time (test code = 441) 334 sec : 74-137 seconds, Baseline: TESTED AT [facility] [address], [address]: Electronic Equipment Repairer/Appliance Line Assembler ID = [id number] for CONCEPCION MONTENEGRO [facility] CampusPOCT-[id number] 20:58:00* Test Item Value Reference Range Interpretation Comments ACTIVATED CLOTTING TIME (BEAKER) (test code = 441) 334 sec : 74-137 seconds, Baseline: TESTED AT [facility] [address], [address]: Electronic Equipment Repairer/Appliance Line Assembler ID = [id number] for CONCEPCION MONTENEGRO B-type Natriuretic Factor (BNP)2019-10-17 19:24:00* Test Item Value Reference Range Interpretation Comments BNP (test code = 70328-5) 198 pg/mL 0-100 H MICHELLE (test code = MICHELLE) Electronic Equipment Repairer ID - DB Lab Interpretation (test code = 48117-8) Abnormal [facility] CampusB-TYPE NATRIURETIC FACTOR (BNP)2019-10-17 19:24:00 * Test Item Value Reference Range Interpretation Comments B-TYPE NATRIURETIC PEPTIDE (BARBIEAKER) (test code = 700) 198 pg/mL 0-100 H Electronic Equipment Repairer ID - DBTROPONIN [id number] 17:10:00* Test Item Value Reference Range Interpretation Comments TROPONIN I (BEAKER) (test code = 397) 5.95 ng/mL 0.00-0.03 Troponin I (TnI) levels must be interpreted in the context of the presenting sym ptoms and the clinical findings. Elevated TnI levels indicate myocardial damage, but are not specific for ischemic heart disease. Elevated TnI levels are seen in patients with other cardiac conditions (including myocarditis and congestive h eart failure), and slight TnI elevations occur in patients with other conditions , including sepsis, renal failure, acidosis, acute neurological disease, and per sistent tachyarrhythmia.Electronic Equipment Repairer ID - DBRAD, CHEST, 1 VIEW, NON [id number] 11:42:00Referring: Dr. Louis Vasquez for exam:->CHEST PAINx 2 daysIs the patient ?->NoFINAL REPORT INDICATION: CHEST PAIN COMPARISON: None TECHNIQUE: Single frontal view of the chest. FINDINGS: Lungs and pleura: Clear lungs. No effusion.Heart and mediastinum: Normal heart size. Unremarkable mediastinal contours. Remote mediastinal surgical changes with fractured sternotomy wires.Osseous structures: No acute abnormality.Other: None. IMPRESSION: No acute intrathoracic abnormality. Signed: JR Ramirez Robert MDReport Verified Date/Time: 10/17/2019 11:42:03 Reading Location: [facility] Radiology Reading Room chest 1 view portable / [id number] 11:42:00Interface, External Ris In - 10/17/2019 12:07 PM CDTFINAL REPORT INDICATION: CHEST PAIN COMPARISON: None TECHNIQUE: Single frontal view of the chest. FINDINGS: Lungs and pleura: Clear lungs. No effusion.Heart and mediastinum: Normal heart size. Unremarkable mediastinal contours. Remote mediastinal surgical changes with fractured sternotomy wires.Osseous structures: No acute abnormality.Other: None. IMPRESSION: No acute intrathoracic abnormality. Signed: JR Ramirez Robert MDReport Verified Date/Time: 10/17/2019 11:42:03 Reading Location: [facility] Radiology [facility] [id number] 11:17:00* Test Item Value Reference Range Interpretation Comments TROPONIN I (BEAKER) (test code = 397) 3.19 ng/mL 0.00-0.03 HH Troponin I (TnI) levels must be interpreted in the context of the presenting sym ptoms and the clinical findings. Elevated TnI levels indicate myocardial damage, but are not specific for ischemic heart disease. Elevated TnI levels are seen in patients with other cardiac conditions (including myocarditis and congestive h eart failure), and slight TnI elevations occur in patients with other conditions , including sepsis, renal failure, acidosis, acute neurological disease, and per sistent tachyarrhythmia.Electronic Equipment Repairer ID - MARCO ANTONIO [id number] 10:58:00* Test Item Value Reference Range Interpretation Comments MAGNESIUM (BEAKER) (test code = 627) 1.8 mg/dL 1.6-2.6 Specimen slightly hemolyzed Electronic Equipment Repairer KELLEE BERNARD FBASIC METABOLIC [id number] 10:58:00* Test Item Value Reference Range Interpretation Comments SODIUM (BEAKER) (test code = 381) 135 meq/L 136-145 L POTASSIUM (BEAKER) (test code = 379) 3.7 meq/L 3.5-5.1 Specimen slightly hemolyzed CHLORIDE (BEAKER) (test code = 382) 101 meq/L 98-107 CO2 (BEAKER) (test code = 355) 24 meq/L 22-29 BLOOD UREA NITROGEN (BEAKER) (test code = 354) 11 mg/dL 7-21 CREATININE (BEAKER) (test code = 358) 0.96 mg/dL 0.57-1.25 Specimen slightly hemolyzed GLUCOSE RANDOM (BEAKER) (test code = 652) 107 mg/dL 70-105 H CALCIUM (BEAKER) (test code = 697) 9.4 mg/dL 8.4-10.2 EGFR (BEAKER) (test code = 1092) 72 mL/min/1.73 sq m ESTIMATED GFR IS NOT ACCURATE CREATININE CLEARANCE IN PREDICTING GLOMERULAR FILTRATION RATE. ESTIMATED GFR IS NOT APPLICABLE FOR DIALYSIS PATIENTS. Electronic Equipment Repairer KELLEE BERNARD FCBC W/PLT COUNT & AUTO [id number] 10:42:00* Test Item Value Reference Range Interpretation Comments WHITE BLOOD CELL COUNT (BEAKER) (test code = 775) 10.2 K/ L 3.5- 10.5 RED BLOOD CELL COUNT (BEAKER) (test code = 761) 5.02 M/ L 3.93-5 .22 HEMOGLOBIN (BEAKER) (test code = 410) 16.2 GM/DL 11.2-15.7 H HEMATOCRIT (BEAKER) (test code = 411) 48.1 % 34.1-44.9 H MEAN CORPUSCULAR VOLUME (BEAKER) (test code = 753) 95.8 fL 79. 4-94.8 H MEAN CORPUSCULAR HEMOGLOBIN (BEAKER) (test code = 751) 32.3 pg 25.6-32.2 H MEAN CORPUSCULAR HEMOGLOBIN CONC (BEAKER) (test code = 752) 33.7 GM/DL 32.2-35.5 RED CELL DISTRIBUTION WIDTH (BEAKER) (test code = 412) 12.6 % 11.7-14.4 PLATELET COUNT (BEAKER) (test code = 756) 241 K/CU MM 150-450 MEAN PLATELET VOLUME (BEAKER) (test code = 754) 10.9 fL 9.4-12 .3 NUCLEATED RED BLOOD CELLS (BEAKER) (test code = 413) 0 /100 WBC 0 -0 NEUTROPHILS RELATIVE PERCENT (BEAKER) (test code = 429) 64 % LYMPHOCYTES RELATIVE PERCENT (BEAKER) (test code = 430) 25 % MONOCYTES RELATIVE PERCENT (BEAKER) (test code = 431) 9 % EOSINOPHILS RELATIVE PERCENT (BEAKER) (test code = 432) 1 % BASOPHILS RELATIVE PERCENT (BEAKER) (test code = 437) 1 % NEUTROPHILS ABSOLUTE COUNT (BEAKER) (test code = 670) 6.51 K/ L 1.56-6.13 H LYMPHOCYTES ABSOLUTE COUNT (BEAKER) (test code = 414) 2.56 K/ L 1.18-3.74 MONOCYTES ABSOLUTE COUNT (BEAKER) (test code = 415) 0.94 K/ L 0. 24-0.36 H EOSINOPHILS ABSOLUTE COUNT (BEAKER) (test code = 416) 0.05 K/ L 0.04-0.36 BASOPHILS ABSOLUTE COUNT (BEAKER) (test code = 417) 0.07 K/ L 0. 01-0.08 IMMATURE GRANULOCYTES-RELATIVE PERCENT (BEAKER) (test code = 2801) 0 % 0-1
--- OUTSIDE RECORDS SUMMARY | 2020-03-16 01:53 | XMS REPORT | Summary of Care ---
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 Name Role Phone Louis Cifuentes MD PCP Reason for Referral * Radiology Services (Routine) Referred By Contact Referred To Contact Status Reason Specialty Diagnoses / Procedures Clay Rodgers FNPC [address] [place] [phone] Pending Cardiology Diagnoses Essential hypertension Coronary artery disease involving tanacross heart without angina pectoris, unspecified vessel or lesion type w/ echo , will bring mask(st) P rocedures MYOCARD PERFUSION - LEXISCAN AZ TC99M TETROFOSMIN [place] INJECTION,REGADENO SON [place] CV STRS TST XERS&/OR RX CONT ECG W/SI&R CHG MYOCARDIAL SPECT MULTIPLE STUDIES * Radiology Services (Routine) Referred By Contact Referred To Contact Status Reason Specialty Diagnoses / Procedures Clay Rodgers FNPC [address] [place] [phone] Pending Cardiology Diagnoses Essential hypertension Coronary artery disease involving tanacross heart without angina pectoris, unspecified vessel or lesion type P rocedures ECHO, COMPLETE Reason for Visit * Reason Comments Hospital Follow-up Encounter Details Care Team Description Date Type Department Bonifacio Beltre MD [address] [place] [address] [phone] Hospital Follow-up 02/18/2020 Office Visit [facility] Cardiology [address] [place]. [address], [address] [place] [address] Allergies No Known Allergiesdocumented as of this encounter (statuses as of 02/18/2020) Medications End Date Status Medication Sig Dispensed Refills Start Date Active aspirin 81 MG tablet Take 81 mg by 0 mouth daily. Active atorvastatin (LIPITOR) 80 Take 1 Tab by 90 Tab 0 MG tabletIndications: CAD mouth every 5 (coronary artery evening. disease), HLD (hyperlipidemia) Active clopidogrel (PLAVIX) 75 Take 1 Tab by 90 Tab 4 MG tabletIndications: CAD mouth daily. 5 (coronary artery disease) Active metoprolol (TOPROL-XL) 25 Take 1 Tab by 90 Tab 3 MG XL tabletIndications: mouth daily. 5 Essential hypertension Active furosemide (LASIX) 20 MG Take 1 Tab by 60 Tab 4 tabletIndications: CAD mouth two 5 (coronary artery disease) times daily. Additional Information Patient not taking. Reason: Other / Enter Comment, Reported on 02/18/2020 1:27 PM Active BuPROPion HCl, Smoking Take 150 mg 60 Each 6 Deter, 150 MG by mouth two 5 [id number]: Tobacco times daily. user Additional Information Patient not taking. Reason: Patient's preference, Reported on 02/18/2020 1:27 PM Active tramadol (ULTRAM) 50 MG Take 1 Tab by 30 Tab 0 tabletIndications: Left mouth daily 5 knee pain, Arthritis of as needed for left knee Pain. Active Diclofenac Sodium 3 % Place 1 Inch 3 Tube 1 GELIndications: Left knee onto the skin 5 pain two times daily. Active tramadol (ULTRAM) 50 MG Take 1-2 30 Tab 1 tablet tablets by 5 mouth every 4-6 hours as needed Active clindamycin (CLEOCIN) 300 Take 1 Cap by 21 Cap 0 MG capsule mouth 3 times 5 daily. Active TraMADol HCl 50 MG TBDP Take 1 tablet 0 by mouth. Active lisinopril-hydrochlorothi Take 1 tablet 0 12/0 azide (PRINZIDE, by mouth. 4 ZESTORETIC) 10-12.5 MG per tablet Active trazodone (DESYREL) 50 MG Take 1 Tab by 30 Tab 3 tabletIndications: mouth nightly 6 Insomnia as needed for Sleep. Active flunisolide (NASALIDE) 25 Inhale 2 1 Bottle 3 MCG/ACT (0.025%) nasal Sprays by 6 spray nose every 12 hours. 02/17/2021 Active isosorbide mononitrate Take 1 Tab by 90 Tab 2 0 (IMDUR) 60 MG CR tablet mouth two 0 times daily. 02/18/2020 Discontinued (*Temporary pre scription) amoxicillin (AMOXIL) 500 Take 1 Cap by 20 Cap 0 mg capsuleIndications: mouth two 6 Acute bacterial sinusitis times daily. 02/18/2020 Discontinued (Reorder) isosorbide mononitrate Take 60 mg by 0 02 (IMDUR) 60 MG CR tablet mouth. 0 documented as of this encounter (statuses as of 02/18/2020) Active Problems Problem Noted Date Primary osteoarthritis of right knee 10/28/2015 Primary osteoarthritis of left knee 04/21/2015 Tear of medial meniscus of knee 04/21/2015 Closed fracture of femur (HCCode) 04/21/2015 Medial knee pain 04/14/2015 Tobacco user 08/21/2014 CAD (coronary artery disease) 08/18/2014 Overview: Inferior STEMI s/p balloon angioplasty ACB X 3; SVG to PDA; SVG to OM2; SARAH t o LAD on 07/07/2014 on ASA, Lipitor Iabp from 07/06-07/08/2014 Diastolic dysfunction, left ventricle 08/18/2014 HTN (hypertension) 08/18/2014 HLD (hyperlipidemia) 08/18/2014 Hepatitis C 08/18/2014 Obesity 08/18/2014 Acute inferolateral myocardial infarction (HCCode) 1 09/06/2013 Arteriosclerosis of coronary artery 07/06/2014 HCV antibody positive 06/30/2014 documented as of this encounter (statuses as of 02/18/2020) Resolved Problems Problem Noted Date Resolved Date SOB (shortness of breath) 09/18/2014 04/10/2015 documented as of this encounter (statuses as of 02/18/2020) Immunizations Name Administration Dates Next Due Influenza Intradermal 09/07/2015 Pneumococcal 09/07/2015 Polysaccharide documented as of this encounter Social History Date Tobacco Use Types Packs/Day Years Used Heavy Tobacco Smoker Smokeless Tobacco: Never Used Drinks/Week oz/Week Comments Alcohol Use Yes Sex Assigned at Date Recorded Not on file Industry Job Start Date Occupation Not on file Not on file Not on file Travel End Travel History Travel Start No recent travel history available. documented as of this encounter Last Filed Vital Signs Reading Time Taken Comments Vital Sign 147/96 02/18/2020 1:18 PM CDT Blood Pressure 96 02/18/2020 1:18 PM CDT Pulse 37 C (98.6 F) 02/18/2020 1:18 PM CDT Temperature 24 02/18/2020 1:18 PM CDT Respiratory Rate 100% 02/18/2020 1:18 PM CDT Oxygen Saturation - - Inhaled Oxygen Concentration 105.3 kg (232 lb 3.2 oz) 02/18/2020 1:18 PM CDT Weight 165.1 cm (5' 5") 02/18/2020 1:18 PM CDT Height 38.64 02/18/2020 1:18 PM CDT Body Mass Index documented in this encounter Patient Instructions * Patient Instructions* Bonifacio Beltre MD - 02/18/2020 1:20 PM CDT 1) 2-D echocardiogram with Doppler: re: CAD. 2) Lexiscan MIBI : Angina pectoris. 3) Imdur 60 mg PO BID. 4) Follow-up in 4 Weeks 5) Tylenol for head aches. Maximum of 3000 mg a day. 6) Come to the ER if symptoms worsen or persist. documented in this encounter Progress Notes * Bonifacio Beltre MD - 02/18/2020 1:20 PM CDT Date: February 18, 2020 Patient Name: Ana Maria Phillips : 1960 Referring Physician: Problem List: #CAD CAD S/P acb on 07/07/2014 - ACB X 3; SVG to PDA; SVG to OM2; SARAH to LAD on 06/23 S/p attempted PCI of OM distal to SVG but unable to cross with wire on 10/17/2019 ASA, Brilinta, Statin, Imdur, Ranexa, BB HTN BB Grade 1 DDx Mild LVH last TTE 2013 Hyperlipidemia Statin Tobacco Abuse Smoking cessation counseling ?Hep C Obese Current Medications: Current Outpatient Medications Medication Sig Dispense Refill aspirin 81 MG tablet Take 81 mg by mouth daily. atorvastatin (LIPITOR) 80 MG tablet Take 1 Tab by mouth every evening. 90 Ta b 0 BuPROPion HCl, Smoking Deter, 150 MG TB12 Take 150 mg by mouth two times paige ly. (Patient not taking: Reported on 02/18/2020) 60 Each 6 clindamycin (CLEOCIN) 300 MG capsule Take 1 Cap by mouth 3 times daily. 21 C ap 0 clopidogrel (PLAVIX) 75 MG tablet Take 1 Tab by mouth daily. 90 Tab 4 Diclofenac Sodium 3 % GEL Place 1 Inch onto the skin two times daily. 3 Tube 1 flunisolide (NASALIDE) 25 MCG/ACT (0.025%) nasal spray Inhale 2 Sprays by no se every 12 hours. 1 Bottle 3 furosemide (LASIX) 20 MG tablet Take 1 Tab by mouth two times daily. (Patien t not taking: Reported on 02/18/2020) 60 Tab 4 lisinopril-hydrochlorothiazide (PRINZIDE, ZESTORETIC) 10-12.5 MG per tablet Take 1 tablet by mouth. metoprolol (TOPROL-XL) 25 MG XL tablet Take 1 Tab by mouth daily. 90 Tab 3 tramadol (ULTRAM) 50 MG tablet Take 1-2 tablets by mouth every 4-6 hours as needed 30 Tab 1 tramadol (ULTRAM) 50 MG tablet Take 1 Tab by mouth daily as needed for Pain. 30 Tab 0 TraMADol HCl 50 MG TBDP Take 1 tablet by mouth. trazodone (DESYREL) 50 MG tablet Take 1 Tab by mouth nightly as needed for S leep. 30 Tab 3 No current facility-administered medications for this visit. Chief Complaint: Chief Complaint Patient presents with Hospital Follow-up History of Present Illness: Ana Maria Phillips is a 59 y.o. female with histor y significant for STEMI (s/p POBA to LCx stump followed by ACB X 3; SVG to PDA; SVG to OM2; SARAH to LAD on 07/07/2014) who presents with 48 hours of stuttering chest pain. Two days ago developed burning chest pressure while eating. Thought it was just GERD, as she gets GERD often when eating spicy foods. Next day was a t a hair appointment, and had an ambulance called due to ongoing chest pain.She presented to [facility] ED on 10/17/2019 with NSTEMI. She is s/p attempted PCI of OM d istal to SVG but unable to cross with wire on 10/17/2019. TTE on 10/18/2019 with L VEF of 50-55%. She presents to the clinic today for her post hospital follow up. Reports that she had been having CHAUHAN and chest pain. Denies SOB, palpitations, dizziness, syncope/near syncopal episodes. Allergies: No Known Allergies Past Medical History: Past Medical History: Diagnosis Date CAD (coronary artery disease) Hyperlipidemia Hypertension Obesity, unspecified STEMI (ST elevation myocardial infarction) (HCCode) Past Surgical History: Past Surgical History: Procedure Laterality Date HX CORONARY ARTERY BYPASS GRAFT Jun 2014 HX KNEE SURGERY Left HX PARTIAL HYSTERECTOMY HX TUBAL LIGATION Social History: Social History Tobacco Use Smoking status: Heavy Tobacco Smoker Smokeless tobacco: Never Used Substance Use Topics Alcohol use: Yes Family History: Family History Problem Relation Name Age of Onset Diabetes Sister ##Sister1 Hypertension Sister ##Sister1 Diabetes Brother ##Brother1 Hypertension Brother ##Brother1 Review of Systems: Constitutional: Negative. HENT: Negative. Eyes: Negative. Respiratory: Negative for shortness of breath. Cardiovascular: Negative Gastrointestinal: Negative for abdominal pain. Genitourinary: Negative. Musculoskeletal: Negative. Skin: Negative. Neurological: Negative. Endo/Heme/Allergies: Negative. Psychiatric/Behavioral: Negative. EXAMINATION BP (!) 147/96 | Pulse 96 | Temp 98.6 F (37 C) (Oral) | Resp 24 | Ht 5' 5 " (1.651 m) | Wt 232 lb 3.2 oz (105.3 kg) | SpO2 100% | BMI 38.64 kg/m General appearance: alert, cooperative, no distress, appears stated age Head: Normocephalic, without obvious abnormality, atraumatic Eyes: conjunctivae/corneas clear. PERRL, EOM's intact. Fundi benign Neck: supple, symmetrical, trachea midline, no adenopathy, thyroid: not enlarg ed, symmetric, no tenderness/mass/nodules, no carotid bruit and no JVD Lungs: clear to auscultation bilaterally Heart: regular rate and rhythm, S1, S2 normal Abdomen: Soft, non-tender. Bowel sounds normal. No masses, No organomegaly Extremities: extremities normal, atraumatic, no cyanosis or edema Pulses: 2+ and symmetric Skin: Skin color, texture, turgor normal. No rashes or lesions Neurologic: Patient is alert and oriented to person, place, and time Echocardiogram: TTE 10/18/2019: Summary 1. LV endocardium is adequately visualized [...] No prior exam available for comparison. Signature Cardiac Catheterization: Cardiac Cath 10/17/2019: Procedure(s) Performed Moderate sedation with IV Fentanyl and Versed Ultrasound guided access to the R SFDC DEVELOPER and CFV Selective coronary angiogram Angiogram of the SVG-PDA, SVG-OM and SARAH-LAD Attempted PCI of OM distal to SVG but unable to cross with wire. R SFDC DEVELOPER angiogram R SFDC DEVELOPER arteriotomy closure with Angioseal Lesions # Segment(s) Culprit Previous PCI Pre-PCI Complexity Post-PCI 1 OM2 Yes No 80-90%. LUCINA-3. Type C. Navigate through graft. ASSESSMENT/PLAN 1) 2-D echocardiogram with Doppler: re: CAD. 2) Lexiscan MIBI : Angina pectoris. 3) Imdur 60 mg PO BID. 4) Follow-up in 4 Weeks 5) Tylenol for head aches. Maximum of 3000 mg a day. 6) Come to the ER if symptoms worsen or persist. Clay Rodgers, MSN, CHIEF SCIENTIFIC OFFICER, LOSS PREVENTION SPECIALIST-C Nurse Practitioner/Instructor Office: Nurse Practitioner to Dr. Bonifacio Beltre MD Interventional Cardiology and Structural Heart Disease [facility] Supervising Physician Attestation: I, Bonifacio Beltre MD., have seen and examined the patient and discussed with Clay Rodgers NP. I agree with the noted findings, examination, assessment and pl an of care as documented in the note. I have also reviewed the medications, lab s, and mobile sales consultant notes. 1) 2-D echocardiogram with Doppler: re: CAD. 2) Lexiscan MIBI : Angina pectoris. 3) Imdur 60 mg PO BID. 4) Follow-up in 4 Weeks 5) Tylenol for head aches. Maximum of 3000 mg a day. 6) Come to the ER if symptoms worsen or persist. Bonifacio Beltre MD, [facility] ([phone]) Interventional Cardiology and Structural Heart Disease Cardiology Section, [facility] Director, Structural Heart Disease [facility], [facility] and [facility] documented in this encounter Plan of Treatment Care Team Description Date Type Specialty 02/25/2020 Ancillary Cardiology Procedure 02/25/2020 Ancillary Cardiology Procedure Bonifacio Beltre MD [address] [place] [address] [phone] 03/20/2020 Office Visit Cardiology Date/Time Name Type Priority Associated Diag noses 02/18/2020 1:23 PM CDT ELECTROCARDIOGRAM ECG Routine Essential hy pertension COMPLETE Order Schedule Name Type Priority Associated Diag noses Expected: 02/18/2020, Expires: 1 ECHO, COMPLETE Cardiac Routine Essential hyper tension Services Coronary artery disease involving tanacross heart without angina pectoris, unspecified vessel or lesion type Expected: 02/18/2020, Expires: 2 MYOCARD PERFUSION - Imaging Routine Essential hypertension LEXISCAN Coronary artery disease involving tanacross heart without angina pectoris, unspecified vessel or lesion type 1 Occurrences starting 02/18/2020 until 08/20/2020 NOVEL 2019 Microbiology Routine Essential hyper tension CORONAVIRUS(COVID-19),JUANITA Coronary artery disease involving tanacross heart without angina pectoris, unspecified vessel or lesion type Health Maintenance Due Date Last Done Comments COLON CANCER SCREENIN1959 COLONOSCOPY TETANUS SHOT (ADULT) 12/17/1974 HIV SCREENING 12/17/1977 CERVICAL CANCER SCREENING 12/17/1980 3 YEAR FOLLOW UP MAMMOGRAM ANNUAL 10/15/2016 10/16/2015 FLU VACCINE > 6 MONTHS 02/22/2020 09/07/2015 HEPATITIS C SCREENING Completed 09/12/2014, 07/25, 08/18/2014, Additional history exists documented as of this encounter Procedures Comments Procedure Name Priority Date/Time Associated Diag nosis ELECTROCARDIOGRAM Routine 02/18/2020 Essential hy pertension COMPLETE 1:23 PM CDT documented in this encounter Results Not on filedocumented in this encounter Visit Diagnoses Diagnosis Essential hypertension - Primary Unspecified essential hypertension Coronary artery disease involving nativ e heart without angina pectoris, unspecified vessel or lesion type documented in this encounter Insurance Type Payer Benefit Subscriber ID Effective Phone Address Plan / Dates Group [facility] - xxxxxxxxxxx 2020-P [address] [phone] documented as of this encounter
--- OUTSIDE RECORDS SUMMARY | 2020-03-16 01:53 | XMS REPORT | Clinical Summary ---
Author Author KERI [facility] Address Unknown Phone Unavailable Care Team Providers Care Food Critic Name Role Phone Louis Cifuentes MD Unavailable Unavailable Rosa Cooper 31 Unavailable Rosa Cooper 31 Unavailable Allergies No Known Allergies Medications End Date Status Medication Sig Dispensed Refills Start Date Active magnesium hydroxide (MILK Take 30 mLs 0 06/24 OF MAGNESIA) 400 mg/5 mL by mouth 4 Susp daily as needed. 10/21/2020 Active aspirin 81 MG EC tablet Take 1 tablet 90 tablet 0 (81 mg total) 0 by mouth daily. 10/20/2020 Active atorvastatin (LIPITOR) 40 Take 1 tablet 90 tablet 0 MG tablet (40 mg total) 0 by mouth nightly. 10/20/2020 Active carvediloL (COREG) 6.25 Take 1 tablet 180 tablet 0 MG tablet (6.25 mg 0 total) by mouth 2 (two) times daily. 10/21/2020 Active isosorbide mononitrate Take 1 tablet 90 tablet 0 0 (IMDUR) 60 MG 24 hr (60 mg total) 0 tablet by mouth daily. Active prasugreL (EFFIENT) 10 mg Take 1 tablet 90 tablet 0 Tab tablet (10 mg total) 0 by mouth daily. 10/20/2020 Active ranolazine (RANEXA) 500 Take 1 tablet 180 tablet 0 MG 12 hr tablet (500 mg 0 total) by mouth 2 (two) times daily. 10/31/2019 traMADoL (ULTRAM) 50 mg Take 1 tablet 30 tablet 0 tablet (50 mg total) 0 by mouth every 6 (six) hours as needed for Pain for up to 10 days. Max Daily Amount: 200 mg Active Problems Problem Noted Date NSTEMI (non-ST elevated myocardial infarction) 10/16 Haemophilus influenzae infection 07/16/2014 Coronary Artery Bypass x3 (07/07/14 ; [S] ) 07/08/20 14 Acute IN inferior lateral first episode care 014 Coronary artery disease 07/06/2014 Acute respiratory insufficiency Acute postoperative pain Encounters Care Team Description Date Type Specialty Lucy Rosado RN 10/26/2019 Documentation Bonifacio Beltre MD L CATH & PCI 10/17/2019 Surgery Eleuterio Rudolph Jr., MD Suero, MD Catarino Cornelius, MD Patt Hinkle Guilherme Vianna, MD NSTEMI (non-ST elevated myocardial infar ction) (HCC) (Primary Dx); Hypertension, uncontrolled; Coronary artery disease involving morongo coronary artery of morongo heart with unstable angina pectoris (HCC); Acute respiratory insufficiency; S/P CABG x 3 10/17/2019 Hospital Cardiology - Encounter 10/21/2019 10/17/2019 Orders Only General Internal Me dicine 10/17/2019 Travel after 03/16/2019 Family History Medical History Relation Name Comments Diabetes Brother Hypertension Brother Unremarkable Daughter Diabetes Sister Hypertension Sister Asthma Son Relation Name Status Comments Brother Daughter Father Mother Sister Son Social History Date Tobacco Use Types Packs/Day Years Used Current Every Day Smoker Cigarettes 0.5 30 Smokeless Tobacco: Never Used Tobacco Cessation: Ready to Quit: Yes; C ounseling Given: Yes Alcohol Use Drinks/Week oz/Week Comments Yes 1 Cans of 0.6 beer Sex Assigned at Date Recorded Not on file Industry Job Start Date Occupation Not on file Not on file Not on file Travel End Travel History Travel Start No recent travel history available. Last Filed Vital Signs Time Taken Vital Sign Reading 10/21/2019 7:30 AM CDT Blood Pressure 149/87 10/21/2019 7:30 AM CDT Pulse 68 10/21/2019 7:30 AM CDT Temperature 36.4 C (97.6 F) 10/21/2019 7:30 AM CDT Respiratory Rate 18 10/21/2019 7:30 AM CDT Oxygen Saturation 94% - Inhaled Oxygen - Concentration - Weight - - Height - - Body Mass Index - Plan of Treatment Not on file Implants Device Identifier Shelf Expiration Date Model / Serial / L ot Implanted Type Area Manufactur er 01/20/2017 [id number] / / [id number] Fairborn,Biocomposite Swivelock C Fairborn/Art Left: Knee ARTHREX 4.75x19.1mm W/Closed Eyelet - hroscopy [id number] Implanted: Qty: 1 on 05/22/2015 by Isai Kingsley MD 03/22/2019 [id number] / / [id number] Sternal Zipfix,With Needle Sterile Cardiovasc N/A: Sternu m SYNTHES Pack Of 5 - [id number] [employer] Implanted: Qty: 3 on 07/07/2014 by Trevin Gilliland MD 02/19/2018 [id number] / / [id number] Bone Substitute,Accufill 5cc - Cement/Topher Left: Knee [employer] [id number] ler/Adhesi Implanted: Qty: 1 on 05/22/2015 by Isai Wyman MD Procedures Comments Procedure Name Priority Date/Time Associated Diag nosis VASCULAR DIAGRAM -SCAN 01/15/2020 3:25 PM CDT VASCULAR DIAGRAM -SCAN 10/24/2019 12:51 PM CDT CARDIAC CATH REPORT - 10/22/2019 SCAN 10:20 AM CDT REPORT OF PROCEDURE - 10/21/2019 ENDOSCOPY SCAN 1:20 PM CDT PHOSPHORUS Routine 10/21/2019 3:51 AM CDT MAGNESIUM Routine 10/21/2019 3:51 AM CDT CBC (HEMOGRAM ONLY) Routine 10/21/2019 3:51 AM CDT BASIC METABOLIC PANEL (7) Routine 10/21/2019 3:51 AM CDT APTT Routine 10/21/2019 3:51 AM CDT PHOSPHORUS Routine 10/20/2019 6:16 AM CDT MAGNESIUM Routine 10/20/2019 6:16 AM CDT CBC (HEMOGRAM ONLY) Routine 10/20/2019 6:16 AM CDT BASIC METABOLIC PANEL (7) Routine 10/20/2019 6:16 AM CDT APTT Routine 10/20/2019 6:16 AM CDT APTT Routine 10/19/2019 11:36 PM CDT APTT Routine 10/19/2019 4:56 PM CDT APTT Routine 10/19/2019 10:20 AM CDT APTT Routine 10/19/2019 8:19 AM CDT APTT Add-On 10/19/2019 4:18 AM CDT PROTHROMBIN TIME/INR Routine 10/19/2019 4:18 AM CDT PHOSPHORUS Routine 10/19/2019 4:18 AM CDT MAGNESIUM Routine 10/19/2019 4:18 AM CDT TROPONIN I Routine 10/19/2019 4:18 AM CDT CBC (HEMOGRAM ONLY) Routine 10/19/2019 4:18 AM CDT BASIC METABOLIC PANEL (7) Routine 10/19/2019 4:18 AM CDT TROPONIN I Routine 10/19/2019 4:18 AM CDT ECHOCARDIOGRAM REPORT - 10/18/2019 SCAN 9:12 PM CDT APTT Routine 10/18/2019 6:28 PM CDT TROPONIN I STAT 10/18/2019 6:28 PM CDT POCT-GLUCOSE METER Routine 10/18/2019 4:23 PM CDT POCT-GLUCOSE METER Routine 10/18/2019 11:55 AM CDT APTT Routine 10/18/2019 11:28 AM CDT TROPONIN I Routine 10/18/2019 11:28 AM CDT 2D ECHO W/ DOPPLER STAT 10/18/2019 (CW/PW/COLOR) 7:39 AM CDT CBC W/PLT COUNT & AUTO Routine 10/18/2019 DIFFERENTIAL 4:41 AM CDT APTT Routine 10/18/2019 4:41 AM CDT CBC W/PLT COUNT & AUTO Routine 10/18/2019 DIFFERENTIAL 4:41 AM CDT BASIC METABOLIC PANEL (7) Routine 10/18/2019 4:41 AM CDT APTT Routine 10/18/2019 12:03 AM CDT TROPONIN I Routine 10/18/2019 12:03 AM CDT APTT Routine 10/17/2019 9:32 PM CDT POCT-ACT Routine 10/17/2019 8:39 PM CDT POCT-GLUCOSE METER Routine 10/17/2019 6:51 PM CDT B-TYPE NATRIURETIC FACTOR Routine 10/17/2019 (BNP) 6:46 PM CDT L CATH & PCI 10/17/2019 Coronary artery dis ease 6:15 PM CDT involving morongo heart without angina pectoris, unspecified vessel or lesion type TROPONIN I STAT 10/17/2019 4:12 PM CDT XR CHEST 1 VIEW STAT 10/17/2019 PORTABLE/BEDSIDE 11:30 AM CDT CBC W/PLT COUNT & AUTO STAT 10/17/2019 DIFFERENTIAL 10:36 AM CDT CBC W/PLT COUNT & AUTO STAT 10/17/2019 DIFFERENTIAL 10:36 AM CDT TROPONIN I STAT 10/17/2019 10:36 AM CDT MAGNESIUM STAT 10/17/2019 10:36 AM CDT BASIC METABOLIC PANEL (7) STAT 10/17/2019 10:36 AM CDT ECG 12-LEAD Routine 10/17/2019 10:07 AM CDT Procedure Note - Interface, External Ris In - 10/17/2019 1:14 PM CDT Ventricula r Rate 64 BPM Atrial Rate 64 BPM P-R Interval 146 ms QRS Duration 88 ms Q-T Interval 420 ms QTC Calculatio n(Bazett) 433 ms P [place] 58 degrees R [place] 60 degrees T [place] 133 degrees Normal sinus rhythm Possible Left atrial enlargemen t ST & T wave abnormalit y, consider lateral ischemia Abnormal ECG No previous ECGs available ECG 12-LEAD STAT 10/17/2019 10:07 AM CDT after 03/16/2019 Results * VASCULAR DIAGRAM -SCAN (01/15/2020 3:25 PM CDT) Only the most recent of 2 results within the time period is included. Narrative Performed At This result has an attachment that is n ot available. * CARDIAC CATH REPORT - SCAN (10/22/2019 10:20 AM CDT) Narrative Performed At This result has an attachment that is n ot available. * EKG-SCANNED (10/21/2019 1:20 PM CDT) Narrative Performed At This result has an attachment that is n ot available. * aPTT (10/21/2019 3:51 AM CDT) Only the most recent of 12 results within the time period is included. PTT 30.6 22.5 - 36.0 seconds [facility] Specimen Blood Performing Organization Address City/State/[facility] Ph one Number [address] [facility] [facility] * CBC (Hemogram only) (10/21/2019 3:51 AM CDT) Only the most recent of 3 results within the time period is included. WBC 8.9 3.5 - 10.5 K/L [facility] RBC 4.08 3.93 - 5.22 M/L [facility] Hemoglobin 12.6 11.2 - 15.7 GM/DL [facility] Hematocrit 39.1 34.1 - 44.9 % [facility] MCV 95.8 (H) 79.4 - 94.8 fL [facility] MCH 30.9 25.6 - 32.2 pg [facility] MCHC 32.2 32.2 - 35.5 GM/DL [facility] RDW 12.6 11.7 - 14.4 % [facility] Platelets 222 150 - 450 K/CU MM [facility] MPV 11.3 9.4 - 12.3 fL [facility] nRBC 0 0 - 0 /100 WBC [facility] Specimen Blood Performing Organization Address [facility] Ph one Number [address] [facility] [facility] * Phosphorus (10/21/2019 3:51 AM CDT) Only the most recent of 3 results within the time period is included. Phosphorus 4.2 2.3 - 4.7 mg/dL [facility] Specimen Blood Narrative Performed At Cleaner Assistant ID - [facility] Performing Organization Address [facility] Ph one Number [address] [facility] * Magnesium (10/21/2019 3:51 AM CDT) Only the most recent of 4 results within the time period is included. Magnesium 1.9 1.6 - 2.6 mg/dL [facility] Specimen Blood Narrative Performed At Cleaner Assistant ID - [facility] Performing Organization Address City/[facility] Ph one Number [address] [facility] * Basic Metabolic Panel (10/21/2019 3:51 AM CDT) Only the most recent of 5 results within the time period is included. Sodium 137 136 - 145 meq/L [facility] Potassium 4.0 3.5 - 5.1 meq/L [facility] Chloride 107 98 - 107 meq/L [facility] CO2 23 22 - 29 meq/L [facility] BUN 16 7 - 21 mg/dL [facility] Creatinine 0.99 0.57 - 1.25 mg/dL [facility] Glucose 87 70 - 105 mg/dL [facility] Calcium 8.6 8.4 - 10.2 mg/dL [facility] EGFR 70Comment: ESTIMATED GFR IS mL/min/1.73 sq [facility] NOT ACCURATE CREATININE [facility] CLEARANCE IN PREDICTING GLOMERULAR FILTRATION RATE. ESTIMATED GFR IS NOT APPLICABLE FOR DIALYSIS PATIENTS. Specimen Blood Narrative Performed At Cleaner Assistant KELLEE Griggs [facility] Performing Organization Address City/State[facility] Ph one Number [address] [facility] * Troponin I (10/19/2019 4:18 AM CDT) Only the most recent of 7 results within the time period is included. Troponin I 4.93 (HH) 0.00 - 0.03 ng/mL [facility] Specimen Blood Narrative Performed At Troponin I (TnI) levels must be interpreted in the co ntext of the presenting [facility] symptoms and the clinical findings. Elevated TnI leve ls indicate myocardial [facility] damage, but are not specific for ischem ic heart disease. Elevated TnI levels are seen in patients with other cardiac con ditions (including myocarditis and congestive heart failure), and slight T nI elevations occur in patients with other conditions, including sepsis, john al failure, acidosis, acute neurological disease, and persistent tachyarrhythmia . Cleaner Assistant ID - PIAYA L Performing Organization Address [facility] one Number [address] [facility] * Prothrombin time/INR (10/19/2019 4:18 AM CDT) Protime 14.2 11.9 - 14.2 seconds [facility] INR 1.1 <=5.9 [facility] Specimen Blood Narrative Performed At Effective 12/19/2018: PT Reference Range Change [facility] New: 11.9-14.2Previous: 11.7-14.7 [facility] MEDICAL NTER RECOMMENDED COUMADIN/WARFARIN INR THERA PY RANGES STANDARD DOSE: 2.0-3.0Includes: PRO PHYLAXIS for venous thrombosis, systemic embolization; TREATMENT for venous thro mbosis and/or pulmonary embolus. HIGH RISK: Target INR is 2.5-3.5 for pa tients wiht mechanical heart valves. Performing Organization Address [facility] one Number [address] [facility] * ECHOCARDIOGRAM REPORT - SCAN (10/18/2019 9:12 PM CDT) Narrative Performed At This result has an attachment that is n ot available. * POC-Glucose meter (10/18/2019 4:23 PM CDT) Only the most recent of 3 results within the time period is included. POC-Glucose Meter 95Comment: : Notified RN/MD: 70 - 110 mg/dL [facility] TESTED AT [address], [address]: Cleaner Assistant/Coroner Forensic Technician ID = [id number] for DEJONPARMJITNEDRA ANGELULI Specimen Blood Performing Organization Address [facility] one Number [address] [facility] * 2D Echo W/Doppler(CW/PW/Color) (10/18/2019 7:39 AM CDT) Ejection Fraction [facility] ECHO [facility]ART[facility] Specimen Narrative Performed At Transthoracic Echocardiography Report (TTE) [facility] ECH O HEARTLAB Demographics [facility] Patient NameTAYLORLICHA of Study10/18/2019 SHIVAM Female Visit [id number] Race Unknown Room [id number] Number Date of 1960 ReferringGuilherme Physician CassiusMD Age 58 year(s)Physician General Practice Eusebio Jasso Clinical Data Abstractor Kiran Roberts Interpreting Poli Juarez MD Physician Procedure Type of Study TTE procedure:2DECHO W DO PPLER(CW/PW/COLOR) (STAT) Indications:Acute Chest Pain/ Suspected CAD. Clinical History HGB 14.5 HCT 43.6 % CAD HTN NSTEMI ACUTE IN L CATH & PCI CORONARY ARTERY BYPASS X 3 Contrast Medium: Definity. Height: 65 inches Weight: 108.41 kg (23 9 lbs) BSA: 2.13 m^2 BMI: 39.77 kg/m^2 HR: 69 bpm BP: 121/75 mmHg Summary 1. LV endocardium is adequately visuali zed with IV ultrasound enhancing agent. The left ventricle is chamber si ze (by vol index) is normal (female - LVED vol - 29-61ml/m2). Mild concentr ic LV hypertrophy. The following segment(s) appear akinetic: basal infer ior, inferoseptal . The other segments contract normally. Global LV s ystolic function lower limits of normal . Estimated LVEF by qualitative assessment is lower limits of normal (50-55%) . Grade 1 diastolic dys function (impaired relaxation and low-normal LA pressure). 2. Normal right ventricle structure and function based on limited views. 3. No significant valvular abnormalitie s 4. Unable to estimate peak systolic PA pressure; inadequate TR velocity signal. Previous Study No prior exam available for comparison. Signature Findings Technical Quality: Technically adequate exam. Left Ventricle LV endoc ardium is adequately visualized with IV ultrasound enhancing [...] (impaired relaxation and low-normal LA pressure). Left AtriumLA s ize is normal . Right VentricleNormal r ight ventricle structure and function based on limited views. Right Atrium Grossl y normal right atrium. Aortic Valve Mild A oV cusp thickening. No evidence of aortic stenosis. No evidence of aortic regurgitation. Mitral Valve Mild M V leaflet thickening. Trace mitral regurgitation. Tricuspid ValveA trace of tricuspid regurgitation. Unable to estimate peak systolic PA pressure; inadequate TR velocity signal. Normal TV structure and function by available views and Doppler. Pulmonic Valve Normal P V structure and function by limited views and Doppler. A trace of pulmonary regurgitation. Aorta Aortic root size (SInus of Valsalva diameter) is normal . PericardiumNo e vidence of pericardial effusion. IVC/SVC/PA/PV/PleuralThe estimated RA pressure by IVC dynamics 0-5mmHg . Chambers/Structures Left Atrium LA Dimension: 3.34 cm LA Area: 18.69 cm^2 LA Volume: 53.23 ml LA Vol. Index: 25 ml/m^2 Left Ventricle LVIDd: 4.22 cm LV Septum Diastolic: 1.18 cm LV PW Diastolic: 1.19 cm LVEDV Kinsey's:77.52 ml LVESV Kinsey's:35.74 ml LVEF Kinsey's: 53.9 % LVEDVI: 36 ml/m^2 LVESVI: 17 ml/m^2 LVOT Diameter: 2.1 cm Aorta Ao Root S of Sulema.: 3.03 cm Doppler/Quantitative Measurements Mitral Valve MV Peak E-Wave: 0.48 m/s MV Peak A-Wave: 1.07 m/s E/A Ratio: 0.45 [...] CO: 4.86 l/min LVOT CI: 2.28 l/min/m^2 Procedure Note Interface, External Ris In - 10/18/2019 10:55 AM CDT Transthoracic Echocardiography Report (TTE) Demographics Patient Name LICHA CARTER Date of Study 10/18/2019 SHIVAM Gender Female Visit Number [id number] Race Unknown Room Number 2C21 Number Date of 1960 Referring Physician PHILIPPE Duron Age 58 year(s) Physician General Practice Eusebio Jasso Clinical Data Abstractor Kiran Roberts Interpreting Poli Juarez MD Physician Procedure Type of Study TTE procedure:2DECHO W DOPPLER(CW/PW/COLOR) (STAT) Indications:Acute Chest Pain/ Suspected CAD. Clinical History HGB 14.5 HCT 43.6 % CAD HTN NSTEMI ACUTE IN L CATH & PCI CORONARY ARTERY BYPASS X 3 Contrast Medium: Definity. Height: 65 inches Weight: 108.41 kg (239 lbs) BSA: 2.13 m^2 BMI: 39.77 kg/m^2 HR: 69 bpm BP: 121/75 mmHg Summary 1. [...] No prior exam available for comparison. Signature Findings Technical Quality: Technically adequate exam. Left Ventricle LV endocardium is adequately visualized with IV [...] limited views. Right Atrium Grossly normal right atrium. Aortic Valve Mild AoV cusp thickening. No evidence of aortic stenosis. No evidence of aortic regurgitation. Mitral Valve Mild MV leaflet thickening. Trace mitral regurgitation. Tricuspid Valve A trace of tricuspid regurgitation. Unable to estimate peak systolic PA pressure; inadequate TR velocity signal. Normal TV structure and function by available views and Doppler. Pulmonic Valve Normal PV structure and function by limited views and Doppler. A trace of pulmonary regurgitation. Aorta Aortic root size (SInus of Valsalva diameter) is normal . Pericardium No evidence of pericardial effusion. IVC/SVC/PA/PV/Pleural The estimated RA pressure by IVC dynamics 0-5mmHg . Chambers/Structures Left Atrium LA Dimension: 3.34 cm LA Area: 18.69 cm^2 LA Volume: 53.23 ml LA Vol. Index: 25 ml/m^2 Left Ventricle LVIDd: 4.22 cm LV Septum Diastolic: 1.18 cm LV PW Diastolic: 1.19 cm LVEDV Kinsey's:77.52 ml LVESV Kinsey's:35.74 ml LVEF Kinsey's: 53.9 % LVEDVI: 36 ml/m^2 LVESVI: 17 ml/m^2 LVOT Diameter: 2.1 cm Aorta Ao Root S of Sulema.: 3.03 cm Doppler/Quantitative Measurements Mitral Valve MV Peak E-Wave: 0.48 m/s MV Peak A-Wave: 1.07 m/s E/A Ratio: 0.45 [...] CO: 4.86 l/min LVOT CI: 2.28 l/min/m^2 Performing Organization Address City/State/Zipcode Ph one Number [facility] ECHO [facility] * CBC with platelet count + automated diff (10/18/2019 4:41 AM CDT) Only the most recent of 2 results within the time period is included. WBC 8.8 3.5 - 10.5 K/L [facility] RBC 4.55 3.93 - 5.22 M/L [facility] Hemoglobin 14.5 11.2 - 15.7 GM/DL [facility] Hematocrit 43.6 34.1 - 44.9 % [facility] MCV 95.8 (H) 79.4 - 94.8 fL [facility] MCH 31.9 25.6 - 32.2 pg [facility] MCHC 33.3 32.2 - 35.5 GM/DL [facility] RDW 12.8 11.7 - 14.4 % [facility] Platelets 242 150 - 450 K/CU MM [facility] MPV 11.2 9.4 - 12.3 fL [facility] nRBC 0 0 - 0 /100 WBC [facility] % Neutros 64 % [facility] % Lymphs 23 % [facility] % Monos 11 % [facility] % Eos 1 % [facility] % Baso 1 % [facility] # Neutros 5.70 1.56 - 6.13 K/L [facility] # Lymphs 2.05 1.18 - 3.74 K/L [facility] # Monos 0.96 (H) 0.24 - 0.36 K/L [facility] # Eos 0.04 0.04 - 0.36 K/L [facility] # Baso 0.05 0.01 - 0.08 K/L [facility] Immature 1 0 - 1 % [facility] Granulocytes-Relative [facility] Specimen Blood Performing Organization Address City/State/Zipcode Ph one Number [facility] [address] [place], [place] [address] [facility] * POC ACTIVATED CLOTTING TIME (10/17/2019 8:39 PM CDT) Activated Clotting Time 334Comment: : 74-137 seconds, sec [facility] Baseline: TESTED AT [facility] [address] [facility], [address]: Cleaner Assistant/Coroner Forensic Technician ID = [id number] for [facility] MONTENEGRO Specimen Blood Performing Organization Address [facility] one [address] [facility] * B-type Natriuretic Factor (BNP) (10/17/2019 6:46 PM CDT) BNP 198 (H) 0 - 100 pg/mL [facility] Specimen Blood Narrative Performed At Cleaner Assistant ID - DB [facility] Performing Organization Address [facility] one [address] [facility] * XR chest 1 view portable / bedside (10/17/2019 11:30 AM CDT) Specimen Narrative Performed At FINAL REPORT GE RIS INDICATION: CHEST PAIN COMPARISON: None TECHNIQUE: Single frontal view of the c hest. FINDINGS: Lungs and pleura: Clear lungs. No effus ion. Heart and mediastinum: Normal heart siz e. Unremarkable mediastinal contours. Remote mediastinal surgical c hanges with fractured sternotomy wires. Osseous structures: No acute abnormalit y. Other: None. IMPRESSION: No acute intrathoracic abnormality. Signed: JR Ramirez Robert MD Report Verified Date/Time: 0 11:42:03 Reading Location: [facility] Reading Room Procedure Note Interface, External Ris In - 10/17/2019 12:07 PM CDT FINAL REPORT INDICATION: CHEST PAIN COMPARISON: None TECHNIQUE: Single frontal view of the chest. FINDINGS: Lungs and pleura: Clear lungs. No effusion. Heart and mediastinum: Normal heart size. Unremarkable mediastinal contours. Remote mediastinal surgical changes with fractured sternotomy wires. Osseous structures: No acute abnormality. Other: None. IMPRESSION: No acute intrathoracic abnormality. Signed: JR Ramirez Robert MD Report Verified Date/Time: 10/17/2019 11:42:03 Reading Location: [facility] Reading Room Performing Organization Address City/State/Zipcode Ph one Number GE R[facility] * ECG 12 lead (10/17/2019 10:07 AM CDT) Specimen Narrative Performed At Ventricular Rate 64 BPM GE MUSE Atrial Rate 64 BPM P-R Interval 146 ms QRS Duration 88 ms Q-T Interval 420 ms QTC Calculation(Bazett) 433 ms P [place] 58 degrees R [place] 60 degrees T [place] 133 degrees Normal sinus rhythm Possible Left atrial enlargement ST & T wave abnormality, consider later al ischemia Abnormal ECG No previous ECGs available Confirmed by MD SMITH JOSEPH P ([id number]) on 10/18/2019 6:34:19 AM Procedure Note Interface, External Ris In - 10/18/2019 6:34 AM CDT Ventricular Rate 64 BPM Atrial Rate 64 BPM P-R Interval 146 ms QRS Duration 88 ms Q-T Interval 420 ms QTC Calculation(Bazett) 433 ms P [place] 58 degrees R [place] 60 degrees T [place] 133 degrees Normal sinus rhythm Possible Left atrial enlargement ST & T wave abnormality, consider lateral ischemia Abnormal ECG No previous ECGs available Confirmed by MD SMITH JOSEPH P ([id number]) on 10/18/2019 6:34:19 AM Performing Organization Address City/State/Zipcode Ph one Number GE MUSE after 03/16/2019 Advance Directives For more information, please contact: [facility] [address] [place] [address] Date Inactivated Comments Code Status Date Activated 10/21/2019 1:26 PM Full Code 10/17/2019 9:24 PM This code status was determined by: Patient 10/17/2019 9:24 PM Full Code 10/17/2019 5:33 PM This code status was determined by: Patient 05/25/2015 2:04 PM Full Code 05/22/2015 6:20 PM This code status was determined by: Patient 05/22/2015 6:20 PM Full Code 05/22/2015 9:51 AM This code status was determined by: Patient 07/22/2014 2:24 PM Full Code 07/06/2014 4:16 AM This code status was determined by: Patient
[2020-03-16 01:54] LABS: ALANINE AMINOTRANSFERASE 67 IU/L (0-55); ALBUMIN 3.3 g/dL (3.5-5.0); ALBUMIN/GLOBULIN RATIO 0.6 (0.8-2.0); ALKALINE PHOSPHATASE 93 IU/L (40-150); ANION GAP 16.6 mmol/L (8-16); BLOOD UREA NITROGEN 17 mg/dL (7-26); BUN/CREATININE RATIO 16 (6-25); CALCIUM 8.7 mg/dL (8.4-10.2); CARBON DIOXIDE 22 mmol/L (22-29); CHLORIDE 106 mmol/L (98-107); CREATININE, SERUM 1.04 mg/dL (0.57-1.11); EST GLOMERULAR FILTRATION RATE > 60 ML/MIN (60-); GLUCOSE 124 mg/dL (74-118); POTASSIUM 4.6 mmol/L (3.5-5.1); SODIUM 140 mmol/L (136-145)
--- NOTE | 2020-03-16 01:55 | Emergency Department Note ---
History of Present Illnes History of Present Illness Chief Complaint: Chest Pain History of Present Illness This is a 59 year old female arrived to the ED with complaints of chest pain fo r several days, history of stent placement in the past . 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 Any updates have been documented here. Past Medical History Recent Fever: No Clinical Suspicion of Infectio: No New/Unexplained Change in Ment: No Past Medical History: Hypertension, [place] Past Surgical History: CABG, PCI, Tubal Ligation Other Surgery: LEFT HAND Social History Smoking Cessation: Current every day smoker Counseling Performed: Yes Alcohol Use: Social Any Illegal Drug Use: No Physically hurt or threatened: No Other Any Pre-Existing Lines (PICC,: No Review of Systems Review of Systems Constitutional: Reports no symptoms EENTM: Reports no symptoms Cardiovascular: Reports as per HPI, Reports chest pain Respiratory: Reports no symptoms Gastrointestinal: Reports no symptoms Genitourinary: Reports no symptoms Musculoskeletal: Reports no symptoms Integumentary: Reports no symptoms Neurological: Reports no symptoms Psychological: Reports no symptoms Endocrine: Reports no symptoms Hematological/Lymphatic: Reports no symptoms Physical Exam Related Data Allergies: Coded Allergies: No Known Allergies (Unverified , 03/16/20) Triage Vital Signs Vital Signs Date Time Temp Pulse Resp B/P (MAP) Pulse Ox O2 Delivery O2 Flow Rate FiO2 03/16/20 01:12 98.8 75 16 169/94 100 Room Air Vital signs reviewed: Yes Physical Exam CONSTITUTIONAL Constitutional: Present well-developed, Present morbidly obese HENT HENT: Present normocephalic, Present atraumatic, Present oropharynx clear/moist, Present nose normal HENT L/R: Present left ext ear normal, Present right ext ear normal EYES Eyes: Reports PERRL, Reports conjunctivae normal NECK Neck: Present ROM normal PULMONARY Pulmonary: Present effort normal, Present breath sounds normal CARDIOVASCULAR Cardiovascular: Present regular rhythm, Present heart sounds normal, Present capillary refill normal, Present normal rate GASTROINTESTINAL Abdominal: Present soft, Present nontender, Present bowel sounds normal GENITOURINARY Genitourinary: Present exam deferred SKIN Skin: Present warm, Present dry MUSCULOSKELETAL Musculoskeletal: Present ROM normal NEUROLOGICAL Neurological: Present alert, Present oriented x 3, Present no gross motor or sensory deficits PSYCHOLOGICAL Psychological: Present mood/affect normal, Present judgement normal Results Laboratory Laboratory Laboratory Tests Test 03/16/20 01:15 Lab results reviewed: Yes Laboratory comments Laboratory Tests Test 03/16/20 01:23 03/16/20 01:15 White Blood Count 8.37 x10e3/uL (4.8-10.8) Red Blood Count 4.36 x10e6/uL (3.6-5.1) Hemoglobin 14.0 g/dL (12.0-16.0) Hematocrit 42.7 % (34.2-44.1) Mean Corpuscular Volume 97.9 fL (81-99) Mean Corpuscular Hemoglobin 32.1 pg (28-32) Mean Corpuscular Hemoglobin Concent 32.8 g/dL (31-35) Red Cell Distribution Width 12.9 % (11.7-14.4) Platelet Count 263 x10e3/uL (140-360) Neutrophils (%) (Auto) 33.5 % (38.7-80.0) Lymphocytes (%) (Auto) 50.7 % (18.0-39.1) Monocytes (%) (Auto) 10.8 % (4.4-11.3) Eosinophils (%) (Auto) 3.5 % (0.0-6.0) Basophils (%) (Auto) 1.1 % (0.0-1.0) Neutrophils # (Auto) 2.8 (2.1-6.9) Lymphocytes # (Auto) 4.2 (1.0-3.2) Monocytes # (Auto) 0.9 (0.2-0.8) Eosinophils # (Auto) 0.3 (0.0-0.4) Basophils # (Auto) 0.1 (0.0-0.1) Absolute Immature Granulocyte (auto 0.03 x10e3/uL (0-0.1) Sodium Level 140 mmol/L (136-145) Potassium Level 4.6 mmol/L (3.5-5.1) Chloride Level 106 mmol/L (98-107) Carbon Dioxide Level 22 mmol/L (22-29) Anion Gap 16.6 mmol/L (8-16) Blood Urea Nitrogen 17 mg/dL (7-26) Creatinine 1.04 mg/dL (0.57-1.11) Estimat Glomerular Filtration Rate > 60 ML/MIN (60-) BUN/Creatinine Ratio 16 (6-25) Glucose Level 124 mg/dL (74-118) Calcium Level 8.7 mg/dL (8.4-10.2) Total Bilirubin 0.5 mg/dL (0.2-1.2) Aspartate Amino Transf (AST/SGOT) 66 IU/L (5-34) Alanine Aminotransferase (ALT/SGPT) 67 IU/L (0-55) Alkaline Phosphatase 93 IU/L (40-150) Creatine Kinase 90 IU/L (29-168) Creatine Kinase MB 1.40 ng/mL (0-5.0) Troponin I 0.070 ng/mL (0-0.300) Total Protein 8.8 g/dL (6.5-8.1) Albumin 3.3 g/dL (3.5-5.0) Globulin 5.5 g/dL (2.3-3.5) Albumin/Globulin Ratio 0.6 (0.8-2.0) Imaging Imaging results reviewed: Yes Procedures 12 Lead ECG Interpretation ECG Interpretation : ECG: ECG 1 Prior ECG tracings: reviewed Rhythm: atrial flutter T wave inversion: I, II, V4, V5, V6 Clinical Impression: abnormal ECG Assessment & Plan Medical Decision Making MDM 59-year-old female arrived to the ED with complaints of chest pain- patient with significant cardiac history. Patient's EKG also concerning for ischemic changes. EKG discussed with cardiology no indications for STEMI activation at this time, we'll trend cardiac markers. Patient required hospital admission for further workup. Assessment & Plan Final Impression: (1) Acute coronary syndrome Depart Disposition: ADMITTED Last Vital Signs Date Time Temp Pulse Resp B/P (MAP) Pulse Ox O2 Delivery O2 Flow Rate FiO2 03/16/20 01:12 98.8 75 16 169/94 100 Room Air Medications in the ED Aspirin 81 mg PRN ONCE PO ; Start 03/16/20 at 01:15; Stop 03/16/20 at 01:16 KINGA WU DO Mar 16, 2020 01:55
[2020-03-16 02:36] LABS: CREATINE KINASE 90 IU/L (29-168)
--- NOTE | 2020-03-16 03:02 | Diagnostic Imaging Report ---
EXAMINATION: CHEST SINGLE (PORTABLE) INDICATION: Chest pain COMPARISON: None FINDINGS: TUBES and LINES: None. LUNGS: Normal lung volumes. Lungs are clear. No consolidations. PLEURA: No pleural effusion or pneumothorax. HEART AND MEDIASTINUM: Cardiac size is mildly enlarged. Clips along the mediastinum. BONES AND SOFT TISSUES: No acute osseous lesion. Soft tissues are unremarkable. Sternotomy wires, a few are fractured. UPPER ABDOMEN: No free air under the diaphragm. IMPRESSION: No acute thoracic radiographic abnormality. Signed by: Kyle Cardona DO on 03/16/2020 2:59 AM
--- OUTSIDE RECORDS SUMMARY | 2020-03-16 03:19 | XMS REPORT | Continuity of Care Document ---
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 Name Role Phone Merline PAEZ, Jaqui Rodarte PCP [phone] SANDHIR, Jovani AMBICA Attphys Unavailable Patt PAEZ, Bonifacio Attphys Alonzo VALERIO, A Lucy Attphys Unavailable Klaudia PAEZ, Deisy Mcclellan Attphys Funmi PAEZ, Adryan Attphys Catarino PAEZ, Layo Ryan Attphys Patt PAEZ, Jennifer Valdovinos Attphys [phone] DEISY RUDOLPH Attphys Unavailable Jovani BILLINGS Admphys Unavailable JENNIFER BELTRE Admphys Unavailable Problems Condition Name Condition Details Condition Category Status Onset Date Resolution Date Last Treatment Date Treating Clinician Comments Source NSTEMI (non-ST elevated myocardial infarction) NSTEMI (non-ST elevated myocardial infarction) Disease Active 2019-10-17 00:00:00 [facility] HLD (hyperlipidemia) HLD (hyperlipidemia) Disease Active 00:00:00 [facility] GERD (gastroesophageal reflux disease) GERD (gastroesophagea l reflux disease) Disease Active 2018-07-07 00:00:00 [facility] Elevated troponin Elevated troponin Disease Active 2018-07-06 00:00:00 [facility] Chest pain Chest pain Disease Active 2018-07-06 00:00:00 [facility] Smoking Smoking Disease Active 2017-12-29 00:00:00 [facility] Abdominal pain Abdominal pain Disease Active 2017-12-07 00:00:00 [facility] Chronic hepatitis C without hepatic coma Chronic hepat itis C without hepatic coma Disease Active 2016-10-11 00:00:00 [facility] Coronary artery disease involving vang ry bypass graft of [place] heart without angina pectoris Coronary artery disease involving vang ry bypass graft of [place] heart without angina pectoris Disease Active 2016-03-23 00:00:00 [facility] Primary osteoarthritis of both knees Primary osteoarthritis of both knees Disease Active 2016-03-23 00:00:00 [facility] Essential hypertension Essential hypertension Disease Active 2016-03-23 00:00:00 [facility] BMI 39.0-39.9,adult BMI 39.0-39.9,adult Disease Active 2016-03-23 00:00 :00 [facility] Dietary counseling and surveillance Dietary counseling and surve illance Disease Active 2016-03-23 00:00:00 [facility] 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 Family History Family Member Diagnosis Comments Start Date Stop Date Source Natural brother Cancer [facility] Natural brother Diabetes [facility] Natural brother Hypertension [facility] Natural father Cancer [facility] Natural mother [facility] Natural sister Cancer [facility] Natural sister Diabetes [facility] Natural sister Hypertension [facility] Natural daughter Unremarkable [facility] Natural son Asthma [facility] Social History Social Habit Start Date Stop Date Quantity Comments Source History of tobacco use Cigarette Smoker [facility] Sex Assigned At [facility] Cigarettes smoked current (pack per day) - Reported 00:00:00 2019-10-18 00:00:00 [facility] Cigarette pack-years 2019-10-18 00:00:00 2019-10-18 00:00:00 [facility] Alcohol intake 2018-12-26 00:00:00 2018-12-26 00:00:00 Current drinker of alcohol (finding) [facility] Food Worry 2018-11-05 00:00:00 2018-11-05 00:00:00 1 [facility] Food Scarcity 2018-11-05 00:00:00 2018-11-05 00:00:00 1 [facility] Alcohol Comment 2017-12-07 00:00:00 2017-12-07 00:00:00 Near daily [facility] Smoking Status Start Date Stop Date Source Current every day smoker 2019-10-18 00:00:00 [facility] Medications Ordered Medication Name Filled Medication Name Start Date Stop Da te Current Medication? Ordering Clinician Indication Dosage Frequency Signature (SIG) Comments Components Source prasugreL (EFFIENT) 10 mg Tab tablet 2019-10-22 00:00:00 Ye s 10mg QD Take 1 tablet (10 mg total) by mouth daily. [facility] aspirin 81 MG EC tablet 2019-10-22 00:00:00 2020-10-21 23:59:00 No 81mg QD Take 1 tablet (81 mg total) by mouth daily. [facility] isosorbide mononitrate (IMDUR) 60 MG 24 hr tablet 2019-10-22 00:00:00 2020-10-21 23:59:00 No 60mg QD Take 1 tab let (60 mg total) by mouth daily. [facility] atorvastatin (LIPITOR) 40 MG tablet 2019-10-21 00:00:0 0 2020-10-20 23:59:00 No 40mg QD Take 1 tablet (40 mg total) by mouth nig htly. [facility] carvediloL (COREG) 6.25 MG tablet 2019-10-21 00:00:00 2020 23:59:00 No 6.25mg Q.5D Take 1 tablet (6.25 mg total) by mouth 2 (two) times daily. [facility] ranolazine (RANEXA) 500 MG 12 hr tablet 00:00:00 2020-10-20 23:59:00 No 500mg Q.5D Take 1 tablet (500 mg total) by mouth 2 (two) times daily. [facility] traMADoL (ULTRAM) 50 mg tablet 2019-10-21 00:00:00 2019-10-31 23 :59:00 No 50mg Take 1 tablet (50 mg total) by mouth every 6 (six) hours as needed for Pain for up to 10 days. Max Daily Amount: 200 mg [facility] furosemide (LASIX) 20 mg tablet 2018-11-05 00:00:00 Yes Coronary artery disease involving coronary bypass graft of [place] heart without angina pectoris 20mg QD Take 1 tablet by mouth daily. [facility] metoprolol succinate (TOPROL XL) 50 mg extended release tabl et 2018-11-05 00:00:00 Yes Coronary artery disease involving coronary bypass graft of [place] heart without angina pectoris 50mg QD Take 1 tablet by mout h daily. [facility] amLODIPine (NORVASC) 5 mg tablet 2018-11-05 00:00:00 Yes Essential hypertension 5mg QD Take 1 tablet by mouth daily. [facility] famotidine (PEPCID) 20 mg tablet 2018-08-06 00:00:00 Yes Gastroesophageal reflux disease, esophagitis presence not specified 20mg Take 1 tablet by mouth 2 times daily as needed for Heartburn. [facility] aspirin (ASPIRIN) 81 mg chewable tablet 2018-07-08 00:00:00 Yes Coronary artery disease involving coronary bypass graft of [place] heart without angina pectoris 81mg QD Chew and swallow 1 tablet by mouth daily. [facility] potassium chloride (K-TABS) 10 mEq extended release tablet 2018-07-07 00:00:00 Yes Essential hypertension 10meq QD Take 1 tablet by mouth daily for replacement. [facility] atorvastatin (LIPITOR) 80 mg tablet 2018-07-07 00:00:00 Yes Pure hypercholesterolemia 80mg Take 1 tablet by mouth at bedtime nig htly. [facility] clopidogrel (PLAVIX) 75 mg tablet 2018-07-07 00:00:00 Yes Coronary artery disease involving coronary bypass graft of [place] heart without angina pectoris 75mg QD Take 1 tablet by mouth daily. [facility] losartan (COZAAR) 100 mg tablet 2018-07-07 00:00:00 Yes Essential hypertension 100mg QD Take 1 tablet by mouth daily for HTN. Increas ed dose. [facility] nicotine (NICODERM CQ) 7 mg/24 hr patch 2018-07-07 00:00:00 Yes Coronary artery disease involving coronary bypass graft of [place] heart without angina pectoris 1{patch} Apply 1 Patch to ski n as directed daily as needed for Other (nicotine craving). [facility] magnesium hydroxide (MILK OF MAGNESIA) 400 mg/5 mL Susp 2014-07-16 00:00:00 Yes 30mL Take 30 mLs by mouth daily as needed. [facility] Immunizations Ordered Immunization Name Filled Immunization Name Date Status Comments Source Influenza, Vaccine<FLUCELVAX>(Multi-Dose) 2018-08-06 00:00 :00 Completed [facility] Influenza Vaccine, Seasonal, Injectable 2017-06-23 00:00:0 0 Completed [facility] PNEUMOCOCCAL 23-VALPS VACCINE 25 MCG/0.5 ML INJECTION 2017-06-23 00:00:00 Completed [facility] Tdap (Tetanus Toxoid, Reduced Diphtheria Toxoid And Acellular Pertussis, Absorbed) 2017-06-23 00:00:00 Completed [facility] Vital Signs Vital Name Observation Time Observation Value Comments Source Systolic blood pressure 2019-10-21 07:30:00 149 mm[Hg] [facility] Diastolic blood pressure 2019-10-21 07:30:00 87 mm[Hg] [facility] Heart rate 2019-10-21 07:30:00 68 /min [facility] Body temperature 2019-10-21 07:30:00 36.44 Christiana [facility] Respiratory rate 2019-10-21 07:30:00 18 /min [facility] Oxygen saturation in Arterial blood by Pulse oximetry 10-20 07:30:00 94 /min [facility] Procedure Date / Time Performed Performing Clinician Sourc e VASCULAR DIAGRAM -SCAN 2020-01-15 15:25:17 [facility] 2019-10-24 12:51:23 Provider, Default Sca [facility] CARDIAC CATH REPORT - SCAN 2019-10-22 10:20:58 Provider, Default Scanning [facility] REPORT OF PROCEDURE - ENDOSCOPY SCAN 2019-10-21 13:20:36 Pro vider, Default Scanning [facility] APTT 2019-10-21 03:51:00 Evie Márquez [facility] BASIC METABOLIC PANEL (7) 2019-10-21 03:51:00 [place], [facility] CBC (HEMOGRAM ONLY) 2019-10-21 03:51:00 [place], [facility] MAGNESIUM 2019-10-21 03:51:00 [place], [facility] PHOSPHORUS 2019-10-21 03:51:00 [place], [facility] APTT 2019-10-20 06:16:[facility] (7) 2019-10-20 06:16:00 [place], [facility] CBC (HEMOGRAM ONLY) 2019-10-20 06:16:00 [place], [facility] MAGNESIUM 2019-10-20 06:16:00 [place], [facility] PHOSPHORUS 2019-10-20 06:16:00 [place], [facility] APTT 2019-10-19 23:36:00 Sen, [facility] APTT 2019-10-19 16:56:00 Sen, [facility] APTT 2019-10-19 10:20:00 Sen, [facility] APTT 2019-10-19 08:19:00 Sen, [facility] BASIC METABOLIC PANEL (7) 2019-10-19 04:18:00 Uk, [facility] CBC (HEMOGRAM ONLY) 2019-10-19 04:18:00 [place], [facility] TROPONIN I 2019-10-19 04:18:00 [place], [facility] MAGNESIUM 2019-10-19 04:18:00 [place], [facility] PHOSPHORUS 2019-10-19 04:18:00 [place], [facility] PROTHROMBIN TIME/INR 2019-10-19 04:18:00 [place], [facility] APTT 2019-10-19 04:18:00 Itz Dela Cruz [facility] ECHOCARDIOGRAM REPORT - SCAN 2019-10-18 21:12:09 Manish Abrams lt [facility] TROPONIN I 2019-10-18 18:28:00 Eletuerio Rudolph [facility] APTT 2019-10-18 18:28:00 [facility] POCT-GLUCOSE METER 2019-10-18 16:23[facility] 2019-10-18 11:55:00 [facility] TROPONIN I 2019-10-18 11:28:00 Franki Llanos [facility] APTT 2019-10-18 11:28:00 Willi, [facility] 2D ECHO W/ DOPPLER (CW/PW/COLOR) 2019-10-18 07:39:18 Vipul Beltre [facility] BASIC METABOLIC PANEL (7) 2019-10-18 04:41:00 Franki Llanos [facility] APTT 2019-10-18 04:41:00 Willi [facility] CBC W/PLT COUNT & AUTO DIFFERENTIAL 2019-10-18 04:41:00 Viet Frnaki [facility] TROPONIN I 2019-10-18 00:03:00 Viet Franki [facility] APTT 2019-10-18 00:03:00 Willi [facility] APTT 2019-10-17 21:32:00 Willi [facility] POCT-ACT 2019-10-17 20:39:00 [facility] POCT-GLUCOSE METER 2019-10-17 18:51:00 [facility] B-TYPE NATRIURETIC FACTOR (BNP) 2019-10-17 18:46:00 Millie Llanos [facility] L CATH & PCI 2019-10-17 18:15:00 Bonifacio Beltre [facility] TROPONIN I 2019-10-17 16:12:00 Klaudia [facility] XR CHEST 1 VIEW PORTABLE/BEDSIDE 2019-10-17 11:30[facility] (7) 2019-10-17 10:36:00 [facility] MAGNESIUM 2019-10-17 10:36:00 [facility] TROPONIN I 2019-10-17 10:36:00 [facility] CBC W/PLT COUNT & AUTO DIFFERENTIAL 2019-10-17 10:36:00 Jorge L Rudolph [facility] ECG 12-LEAD 2019-10-17 10:07:43 Unknown, [facility] Plan of Care Planned Activity Planned Date Details Comments Source Future Scheduled Test 2023-12-05 00:00:00 Screening for aaron gnant neoplasm of colon (procedure) [code = 859781242] [facility] Future Scheduled Test 2020-04-23 00:00:00 IMM Influenza Seas onal Apr to September (>/= 19 yrs) [code = IMM Influenza Seasonal Apr to September (>/= 19 yrs)] [facility] Scheduled Test 2019-11-06 00:00:00 CORONARY ARTERY DI SEASE AGE 18 AND UP [code = CORONARY ARTERY DISEASE AGE 18 AND UP] [facility] Scheduled Test 2019-08-08 00:00:00 Breast Cancer Scrn (Yearly) [code = Breast Cancer Scrn (Yearly)] [facility] Encounters Start Date/Time End Date/Time Encounter Type Admission Type Attendi RUST Care Department Encounter ID Source 2018-07-07 06:39:16 Inpatient [facility] [id number] [facility] 2020-02-18 13:01:23 2020-02-18 14:15:36 Office Visit Bonifacio Beltre [facility] [id number] 2018-11-05 10:01:16 2018-11-05 10:01:16 Outpatient [facility] [id number] [facility] 2018-11-05 09:15:34 2018-11-05 09:15:34 Outpatient [facility] [id number] [facility] 2018-08-15 00:00:00 2018-08-15 00:00:00 Outpatient [facility] [id number] [facility] 2018-08-08 11:25:22 2018-08-08 11:25:22 Outpatient [facility] [id number] [facility] 2018-08-08 00:00:00 2018-08-08 00:00:00 Outpatient [facility] [id number] [facility] 2018-08-08 00:00:00 2018-08-08 00:00:00 Outpatient [facility] [id number] [facility] 2018-08-07 00:00:00 2018-08-07 00:00:00 Outpatient [facility] [id number] [facility] 2018-08-06 14:10:06 2018-08-06 14:10:06 Outpatient [facility] [id number] [facility] 2018-07-06 12:53:49 2018-07-06 12:53:49 Emergency [facility] [id number] [facility] 2018-07-06 11:25:51 2018-07-06 11:25:51 Inpatient [facility] [id number] [facility] 2018-07-06 09:49:21 2018-07-06 09:49:21 Outpatient [facility] [id number] [facility] 2018-05-29 00:00:00 2018-05-29 00:00:00 Outpatient [facility] [id number] [facility] 2018-03-28 00:00:00 2018-03-28 00:00:00 Outpatient [facility] [id number] [facility] 2018-03-20 00:00:00 2018-03-20 00:00:00 Outpatient [facility] [id number] [facility] 2018-03-16 00:00:00 2018-03-16 00:00:00 Outpatient [facility] [id number] [facility] 2018-03-09 00:00:00 2018-03-09 00:00:00 Outpatient [facility] [id number] [facility] 2018-01-02 13:42:40 2018-01-02 13:42:40 Outpatient [facility] [id number] [facility] 2018-01-02 13:02:19 2018-01-02 13:02:19 Outpatient [facility] [id number] [facility] 2017-12-29 14:57:25 2017-12-29 14:57:25 Outpatient [facility] [id number] [facility] 2017-12-07 06:07:29 2017-12-07 06:07:29 Emergency [facility] [id number] [facility] 2017-12-07 03:50:04 2017-12-07 03:50:04 Emergency [facility] [id number] [facility] 2017-12-05 14:54:21 2017-12-05 14:54:21 Outpatient [facility] [id number] [facility] 2017-11-30 14:14:45 2017-11-30 14:14:45 Outpatient [facility] [id number] [facility] 2017-09-21 00:00:00 2017-09-21 00:00:00 Outpatient [facility] [id number] [facility] 2017-07-25 10:02:49 2017-07-25 10:02:49 Outpatient [facility] [id number] [facility] 2017-07-04 00:00:00 2017-07-04 00:00:00 Outpatient [facility] [id number] [facility] 2017-06-23 13:08:32 2017-06-23 13:08:32 Outpatient [facility] [id number] [facility] 2017-06-13 07:39:47 2017-06-13 07:39:47 Outpatient [facility] [id number] [facility] 2017-06-08 14:00:34 2017-06-08 14:00:34 Outpatient [facility] [id number] [facility] Results Test Description Test Time Test Comments Results Result Comments Source CHEST SINGLE (PORTABLE) 2020-03-16 02:56:00 [place] [address] Patient Name: LICHA CARTER MR #: [id number] : 1960 Age/Sex: 59/F Req #: [id number] Adm Physician: Ordered by: KINGA WU DO Report #: [id number] Location: ER Room/Bed: Procedure: [id number] DX/CHEST SINGLE (PORTABLE) Exam Date: 03/16/20 Exam Time: 0140 REPORT STATUS: Signed EXAMINATION: CHEST SINGLE (PORTABLE) INDICATION: Chest pain COMPARISON: None FINDINGS: TUBES and LINES: None. LUNGS: Normal lung volumes. Lungs are clear. No consolidations. PLEURA: No pleural effusion or pne umothorax. HEART AND MEDIASTINUM: Cardiac size is mildly enlarged. Clips along the mediastinum. BONES AND SOFT TISSUES: No acute osseous lesion. Soft tissues are unremarkable. Sternotomy wires, a few are fractured. UPPER ABDOMEN: No free air under the diaphragm. IMPRESSION: No acute thoracic radiographic abnormality. Signed by: Kyle Berumen DO on 03/16/2020 2:59 AM Dictated By: KYLE BERUMEN DO 8 Transcribed By: BRITTNY on 03/16/20258 COPY TO: KINGA WU DO Basic Metabolic Panel 2019-10-21 04:29:00 Test Item [...] 87 mg/dL 70-105 Calcium (test code = 00711-4) 8.6 mg/dL 8.4-10.2 EGFR (test code = 76099-1) 70 mL/min/1.73 sq m ESTIMATED GFR IS NOT ACCURATE CREATININE CLEARANCE IN PREDICTING GLOMERULAR FILTRATION RATE. ESTIMATED GFR IS NOT APPLICABLE FOR DIALYSIS PATIENTS. MICHELLE (test code = MICHELLE) Substance Abuse Nurse [facility] 04:29:00* Test Item Value Reference Range Interpretation Comments Magnesium (test code = 03348-3) 1.9 mg/dL 1.6-2.6 MICHELLE (test code = MICHELLE) Substance Abuse Nurse [facility] Lab Interpretation (test code = 22601-4) [facility] 04:29:00* Test Item Value Reference Range Interpretation Comments Phosphorus (test code = 2777-1) 4.2 mg/dL 2.3-4.7 MICHELLE (test code = MICHELLE) Substance Abuse Nurse ID [facility] Lab Interpretation (test code = 76520-6) Normal [facility] 04:29:00* Test Item Value Reference Range Interpretation Comments PHOSPHORUS (BEAKER) (test code = 604) 4.2 mg/dL 2.3-4.7 Substance Abuse Nurse ID - LUIS CARLOS [id number] 04:29:00* Test Item Value Reference Range Interpretation Comments MAGNESIUM (BEAKER) (test code = 627) 1.9 mg/dL 1.6-2.6 Substance Abuse Nurse ID Alisa ALDRIDGE [facility] METABOLIC [id number] 04:29:00* Test Item Value Reference Range Interpretation [...] GFR IS NOT APPLICABLE FOR DIALYSIS PATIENTS. Substance Abuse Nurse ID - LUIS CARLOS [id number] 04:10:00* Test Item Value Reference Range Interpretation Comments PTT (test code = 16570-1) 30.6 22.5- 36.0 seconds Lab Interpretation (test code = 50457-0) [facility] 04:10:00* Test Item Value Reference Range Interpretation [...] 450 K/CU MM MPV (test code = 19880-5) 11.3 fL 9.4-12.3 nRBC (test code = 413) 0 0- 0 /100 WBC Lab Interpretation (test code = 16597-1) Abnormal [facility] (HEMOGRAM ONLY)2019-10-21 04:03:00* Test Item Value Reference [...] = 413) 0 /100 WBC 0 -0 [id number] 07:05:00* Test Item Value Reference Range Interpretation Comments PHOSPHORUS (BEAKER) (test code = 604) 4.2 mg/dL 2.3-4.7 Substance Abuse Nurse ID - LUIS CARLOS [id number] 07:05:00* Test Item Value Reference Range Interpretation Comments MAGNESIUM (BEAKER) (test code = 627) 2.0 mg/dL 1.6-2.6 Substance Abuse Nurse ID - LUIS CARLOS MBASIC METABOLIC [id number] 07:05:00* Test Item Value Reference Range Interpretation [...] GFR IS NOT APPLICABLE FOR DIALYSIS PATIENTS. Substance Abuse Nurse ID - LUIS CARLOS [id number] 06:56:00* Test Item Value Reference Range Interpretation [...] = 413) 0 /100 WBC 0 -0 [id number] 00:24:00* Test Item Value Reference Range Interpretation Comments PARTIAL THROMBOPLASTIN TIME (BEAKER) (test code = 760) 65.9 seconds 22.5-36.0 H [id number] 17:25:00* Test Item Value Reference Range Interpretation Comments PARTIAL THROMBOPLASTIN TIME (BEAKER) (test code = 760) 62.3 seconds 22.5-36.0 H [id number] 10:39:00* Test Item Value Reference Range Interpretation Comments PARTIAL THROMBOPLASTIN TIME (BEAKER) (test code = 760) 67.1 seconds 22.5-36.0 H POC-Glucose [id number] 08:56:00* Test Item Value Reference Range Interpretation Comments POC-Glucose Meter (test code = 1538) 95 mg/dL 70-110 : Notified RN/MD: TESTED AT [address], [address]: Substance Abuse Nurse/Photocopying Equipment Repairer ID = [id number] for NAVYA HOLT Lab Interpretation (test code = 10673-2) [facility] [id number] 08:56:00* Test Item Value Reference Range Interpretation Comments POC-GLUCOSE METER (BEAKER) (test code = 1538) 95 mg/dL 70-110 : Notified RN/MD: TESTED AT [address], [address]: Substance Abuse Nurse/Photocopying Equipment Repairer ID = [id number] for NAVYA HOLT [id number] 08:48:00* Test Item Value Reference Range Interpretation Comments PARTIAL THROMBOPLASTIN TIME (BEAKER) (test code = 760) 126.4 sec onds 22.5-36.0 H [id number] 07:35:00* Test Item Value Reference Range Interpretation Comments PARTIAL THROMBOPLASTIN TIME (BEAKER) (test code = 760) 163.5 sec onds 22.5-36.0 HH TROPONIN [id number] 05:39:00* Test Item Value Reference Range Interpretation Comments TROPONIN I (KENNEDI) (test code = 397) 4.77 ng/mL 0.00-0.03 [...] acidosis, acute neurological disease, and per sistent tachyarrhythmia.Substance Abuse Nurse ID - SUSAN LTrjulion [id number] 05:38:00* Test Item Value Reference Range Interpretation Comments Troponin I (test code = 47350-1) 4.93 ng/mL 0-0.03 HH MICHELLE (test code [...] failure, acidosis, acute neurological disease, and persistent tachyarrhythmia.Substance Abuse Nurse ID - SUSAN L Lab Interpretation (test code = 58362-0) Abnormal [facility] [id number] 05:38:00* Test Item Value Reference Range Interpretation Comments TROPONIN I (KENNEDI) (test code = 397) 4.93 ng/mL 0.00-0.03 Troponin I (TnI) levels must [...] acidosis, acute neurological disease, and per sistent tachyarrhythmia.Substance Abuse Nurse ID - SUSAN [id number] 05:38:00* Test Item Value Reference Range Interpretation Comments MAGNESIUM (BEAKER) (test code = 627) 2.1 mg/dL 1.6-2.6 Specimen slightly hemolyzed Substance Abuse Nurse KELLEE DAVIS [id number] 05:38:00* Test Item Value Reference Range Interpretation Comments PHOSPHORUS (BEAKER) (test code = 604) 4.5 mg/dL 2.3-4.7 Specimen slightly hemolyzed Substance Abuse Nurse KELLEE DAVIS LBASIC METABOLIC [id number] 05:38:00* Test Item Value Reference Range Interpretation [...] GFR IS NOT APPLICABLE FOR DIALYSIS PATIENTS. Substance Abuse Nurse KELLEE DAVIS LProthrombin time/[id number] 05:23:00* Test Item Value Reference Range Interpretation [...] heart valves. Lab Interpretation (test code = 06011-0) Normal [facility]/[id number] 05:23:00* Test Item Value Reference Range Interpretation [...] 413) 0 /100 WBC 0 -0 TROPONIN [id number] 19:13:00* Test Item Value Reference Range Interpretation [...] acidosis, acute neurological disease, and per sistent tachyarrhythmia.Substance Abuse Nurse ID - [id number] 18:51:00* Test Item Value Reference Range Interpretation Comments PARTIAL THROMBOPLASTIN TIME (BEAKER) (test code = 760) 80.5 seconds 22.5-36.0 H TROPONIN [id number] 12:37:00* Test Item Value Reference Range Interpretation [...] acidosis, acute neurological disease, and per sistent tachyarrhythmia.Substance Abuse Nurse ID - [id number] 12:14:00* Test Item Value Reference Range Interpretation Comments PARTIAL THROMBOPLASTIN TIME (BARBIEAKER) (test code = 760) 63.2 seconds 22.5-36.0 H POCT-GLUCOSE [id number] 12:09:00* Test Item Value Reference Range Interpretation Comments POC-GLUCOSE METER (BEAKER) (test code = 1538) 99 mg/dL 70-110 : Notified RN/MD: TESTED AT [facility] [address] [facility], [address]: Substance Abuse Nurse/Photocopying Equipment Repairer ID = [id number] for MARIMUTHU, RAMAMANI 2D Echo W/Doppler(CW/PW/Color)2019-10-18 10:54:46Ejection FractionSLEH ECHO HEARTLAB MKCKESSON CPACSInterface, External Ris In - 10/18/2019 10:55 AM CDTTransthoracic Echocardiography Report (TTE) Demographics Patient Name LICHA CARTER Date of Study 10/18/2019 SHIVAM Gender Female Visit Number [id number] Race Unknown Room Number 2C21 Number Date of 1960 Referring Physician PHILIPPE Duron Age 58 year(s) 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 Eusebio Jasso 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 Kiran Roberts Interpreting Poli Juarez MD Physician [...] CO: 4.86 l/min LVOT CI: 2.28 l/min/m^2 [facility] [id number] 06:34:22 Interface, External Ris In - 10/18/2019 6:34 AM CDTVentricular Rate 64 BPMAtria l Rate 64 BPMP-R Interval 146 msQRS Duration 88 msQ-T Interval 420 msQTC Calcula tion(Bazett) 433 msP [place] 58 degreesR [place] 60 degreesT [place] 133 degreesNormal si nus rhythmPossible Left atrial enlargementST & T wave abnormality, consider lateral ischemiaAbnormal ECGNo previous ECGs availableConfirmed by MD SARAH, TEAGAN Arguelles ([id number]) on 10/18/2019 6:34:19 [facility] [id number] 05:17:00* Test Item Value Reference Range Interpretation [...] GFR IS NOT APPLICABLE FOR DIALYSIS PATIENTS. Substance Abuse Nurse ID - SUSAN [id number] 05:07:00* Test Item Value Reference Range Interpretation Comments PARTIAL THROMBOPLASTIN TIME (BEAKER) (test code = 760) 35.7 seconds 22.5-36.0 CBC with platelet count + automated [id number] 05:03:00* Test Item Value Reference Range Interpretation [...] 450 K/CU MM MPV (test code = 03111-9) 11.2 fL 9.4-12.3 nRBC (test code = [...] % 0-1 Lab Interpretation (test code = 39765-9) Abnormal [facility] W/PLT COUNT & AUTO [id number] 05:03:00* Test Item Value Reference Range Interpretation [...] code = 2801) 1 % 0-1 TROPONIN [id number] 00:40:00* Test Item Value Reference Range Interpretation [...] acidosis, acute neurological disease, and per sistent tachyarrhythmia.Substance Abuse Nurse ID - SUSAN [id number] 00:30:00* Test Item Value Reference Range Interpretation Comments PARTIAL THROMBOPLASTIN TIME (BEAKER) (test code = 760) 153.0 sec onds 22.5-36.0 HH 6 hours after starting heparin infusion and as indicated per sliding scalePOCT- GLUCOSE [id number] 22:18:00* Test Item Value Reference Range Interpretation Comments POC-GLUCOSE METER (BEAKER) (test code = 1538) 89 mg/dL 70-110 : TESTED AT [facility] [address] [facility], [address]: Substance Abuse Nurse/Photocopying Equipment Repairer ID = [id number] for Melanie Granda [id number] 22:01:00* Test Item Value Reference Range Interpretation Comments PARTIAL THROMBOPLASTIN TIME (BEAKER) (test code = 760) > seconds 22.5-36.0 HH POC ACTIVATED CLOTTING [id number] 20:58:00* Test Item Value Reference Range Interpretation Comments Activated Clotting Time (test code = 441) 334 sec : 74-137 seconds, Baseline: TESTED AT [facility] [address] [facility], [address]: Substance Abuse Nurse/Photocopying Equipment Repairer ID = [id number] for CONCEPCION MONTENEGRO [facility] CenterPOCT-[id number] 20:58:00* Test Item Value Reference Range Interpretation Comments ACTIVATED CLOTTING TIME (BEAKER) (test code = 441) 334 sec : 74-137 seconds, Baseline: TESTED AT [facility] [address] [facility], [address]: Substance Abuse Nurse/Photocopying Equipment Repairer ID = [id number] for CONCEPCION MONTENEGRO B-type Natriuretic Factor (BNP)2019-10-17 19:24:00* Test Item Value Reference Range Interpretation Comments BNP (test code = 83823-2) 198 pg/mL 0-100 H MICHELLE (test code = MICHELLE) Substance Abuse Nurse ID - DB Lab Interpretation (test code = 77841-9) Abnormal [facility] CenterB-TYPE NATRIURETIC FACTOR (BNP)2019-10-17 19:24:00 * Test Item Value Reference Range Interpretation Comments B-TYPE NATRIURETIC PEPTIDE (BARBIEAKER) (test code = 700) 198 pg/mL 0-100 H Substance Abuse Nurse ID - DBTROPONIN [id number] 17:10:00* Test Item Value Reference Range Interpretation Comments TROPONIN I (BARBIEAKER) (test code = 397) 5.95 ng/mL 0.00-0.03 HH Troponin I (TnI) levels [...] acidosis, acute neurological disease, and per sistent tachyarrhythmia.Substance Abuse Nurse ID - DBRAD, CHEST, 1 VIEW, NON [id number] 11:42:00Referring: Dr. Louis Vasquez for exam:->CHEST PAINx [...] MDReport Verified Date/Time: 10/17/2019 11:42:03 Reading Location: [facility] Radiology Reading Room chest 1 view portable / [id number] 11:42:00Interface, External Ris In - 10/17/2019 12:07 [...] MDReport Verified Date/Time: 10/17/2019 11:42:03 Reading Location: [facility] Radiology Reading Room [facility] [id number] 11:17:00* Test Item Value Reference Range Interpretation Comments TROPONIN I (KENNEDI) (test code = 397) 3.19 ng/mL 0.00-0.03 [...] acidosis, acute neurological disease, and per sistent tachyarrhythmia.Substance Abuse Nurse ID Alisa BERNARD [id number] 10:58:00* Test Item Value Reference Range Interpretation Comments MAGNESIUM (KENNEDI) (test code = 627) 1.8 mg/dL 1.6-2.6 Specimen slightly hemolyzed Substance Abuse Nurse ID Alisa BERNARD FBASIC METABOLIC [id number] 10:58:00* Test Item Value Reference Range Interpretation [...] GFR IS NOT APPLICABLE FOR DIALYSIS PATIENTS. Substance Abuse Nurse ID - MARCO ANTONIO FCBC W/PLT COUNT & AUTO [id number] 10:42:00* Test Item Value Reference Range Interpretation [...]
--- OUTSIDE RECORDS SUMMARY | 2020-03-16 03:19 | XMS REPORT | Continuity of Care Document ---
Author Author Fabrice Robertson LICHA LANGLEY Organization [facility] [employer] Address Unknown Phone Unavailable Care Team Providers Care Beef Tagger Name Role Phone [facility] Information [employer] Unavailable Un available Problems Problem Status Onset [...] made to exams dated: 10/14/2011 mammogram - [facility] - Outpatient Imaging and 03/20/2009 mammogram - [facility] Outpatient Imaging Department. The tissue of both breasts is predominantly fatty. There is a benign calcification in the right breast. No significant masses, calcifications, or other findings are seen in either breast. There has been no significant interval change. IMPRESSION: BENIGN There is no mammographic evidence of malignancy. A screening mammogram in one year is recommended. SUMMARY: SL: 15. Yasemin mathias/bill:12/21/2012 10:23:03 Cost Manager: Kymberly Solorzano [facility] letter sent: Normal exam Mammogram BI-RADS: 2 [...] ADM Date DC Date Status Source Outpatient [id number] V76.12 - SCREEN M ALESSANDRO CROSS 10/14/2011 [...]
--- OUTSIDE RECORDS SUMMARY | 2020-03-16 03:19 | XMS REPORT | Clinical Summary ---
Author Author [facility] Organization [facility] Address Unknown Phone Unavailable Care Team Providers Care Dentures Lab Technician Name Role Phone Aster Rick MD PCP [phone] Allergies No Known Allergies Medications End [...] disease daily. involving coronary bypass graft of oneida heart without angina pectoris Active losartan (COZAAR) 100 mg Take 1 tablet 30 tablet 3 tabletIndications: by mouth 8 Essential hypertension daily for HTN. Increased dose. Active aspirin (ASPIRIN) 81 mg Chew and 30 tablet 2 chewable swallow 1 8 tabletIndications: tablet by Coronary artery disease mouth daily. involving coronary bypass graft of oneida heart without angina pectoris Active nicotine (NICODERM CQ) 7 Apply 1 Patch 28 Patch 0 mg/24 hr to skin as 8 patchIndications: directed Essential hypertension, daily as Coronary artery disease needed for involving coronary bypass Other graft of oneida heart (nicotine without angina pectoris craving). Active famotidine (PEPCID) 20 mg Take 1 tablet 180 tablet 1 tabletIndications: by mouth 2 9 Gastroesophageal reflux times daily disease, esophagitis as needed for presence not specified Heartburn. Active furosemide (LASIX) 20 mg Take 1 tablet 30 tablet 5 tabletIndications: by mouth 9 Coronary artery disease daily. involving coronary bypass graft of oneida heart without angina pectoris Active metoprolol succinate Take 1 tablet 30 tablet 5 (TOPROL XL) 50 mg by mouth 9 extended release daily. tabletIndications: Coronary artery disease involving coronary bypass graft of oneida heart without angina pectoris Active amLODIPine (NORVASC) 5 mg Take 1 tablet 30 tablet 5 tabletIndications: by mouth 9 Essential hypertension daily. Active Problems Problem Noted Date HLD (hyperlipidemia) 07/07/2018 GERD (gastroesophageal reflux disease) 07/07/2018 Elevated troponin 07/06/2018 Chest pain 07/06/2018 Smoking 12/29/2017 Abdominal pain 12/07/2017 Chronic hepatitis C without hepatic coma 10/11/2016 Coronary artery disease involving coronary bypass gra ft of oneida heart 03/23/2016 without angina pectoris Primary osteoarthritis [...] Effective Phone Address Plan / Dates Group [facility] xxxxxxxxxxxx 2018-P [address] [facility] [id number] [facility] [place] [address] Advance Directives Date Inactivated Comments Code Status Date Activated 07/07/2018 5:29 PM Full Code 07/06/2018 11:31 PM
--- OUTSIDE RECORDS SUMMARY | 2020-03-16 03:19 | XMS REPORT | Clinical Summary ---
Author Author [facility] Address Unknown Phone Unavailable Care Team Providers Care Physical Trainer Name Role Phone Louis Cifuentes MD Unavailable [...] (07/07/14 ; [S] ) 07/08/20 14 Acute CO inferior lateral first episode care 014 Coronary [...] Dx); Hypertension, uncontrolled; Coronary artery disease involving shinnecock coronary artery of shinnecock heart with unstable angina pectoris (HCC); Acute [...] Area Manufactur er 01/20/2017 [id number] / / [id number] Littcarr,Biocomposite Swivelock C Littcarr/Art Left: Knee ARTHREX 4.75x19.1mm W/Closed Eyelet - hroscopy [id number] Implanted: Qty: 1 on 05/22/2015 by Isai Kingsley MD 03/22/2019 [id number] / / [id number] Sternal Zipfix,With Needle Sterile Cardiovasc N/A: Sternu m SYNTHES Pack Of 5 - [id number] [employer] Implanted: Qty: 3 on 07/07/2014 by Trevin Gilliland MD 02/19/2018 201.050 / / [id number] Bone Substitute,Accufill 5cc - Cement/Topher Left: Knee [employer] [id number] ler/Adhesi Implanted: Qty: 1 on 05/22/2015 by [...] artery dis ease 6:15 PM CDT involving shinnecock heart without angina pectoris, unspecified vessel or [...] ms QTC Calculatio n(Bazett) 433 ms P Whitman 58 degrees R Whitman 60 degrees T Whitman 133 degrees Normal sinus rhythm Possible Left [...] included. PTT 30.6 22.5 - 36.0 seconds [facility] Specimen Blood Performing Organization Address City/State/[facility] Ph one Number [address] [address] [facility]ENTER * CBC (Hemogram only) (10/21/2019 3:51 AM CDT) Only the most recent of 3 results within the time period is included. WBC 8.9 3.5 - 10.5 K/L [facility] RBC 4.08 3.93 - 5.22 M/L [facility] Hemoglobin 12.6 11.2 - 15.7 GM/DL [facility] Hematocrit 39.1 34.1 - 44.9 % [facility] MCV 95.8 (H) 79.4 - 94.8 fL [facility] MCH 30.9 25.6 - 32.2 pg [facility] MCHC 32.2 32.2 - 35.5 GM/DL [facility] RDW 12.6 11.7 - 14.4 % [facility] Platelets 222 150 - 450 K/CU MM [facility] MPV 11.3 9.4 - 12.3 fL [facility] nRBC 0 0 - 0 /100 WBC [facility] Specimen Blood Performing Organization Address [facility] Ph one Number [address] [facility] * Phosphorus (10/21/2019 3:51 AM CDT) Only the most recent of 3 results within the time period is included. Phosphorus 4.2 2.3 - 4.7 mg/dL [facility] Specimen Blood Narrative Performed At Precinct Police Captain ID - [facility] Performing Organization Address [facility] Ph one Number [address] [facility] * Magnesium (10/21/2019 3:51 AM CDT) Only the most recent of 4 results within the time period is included. Magnesium 1.9 1.6 - 2.6 mg/dL [facility] Specimen Blood Narrative Performed At Precinct Police Captain ID - [facility] Performing Organization Address City/[facility] Ph one Number [address] [facility] * Basic Metabolic Panel (10/21/2019 3:51 AM CDT) Only the most recent of 5 results within the time period is included. Sodium 137 136 - 145 meq/L [facility] Potassium 4.0 3.5 - 5.1 meq/L [facility] Chloride 107 98 - 107 meq/L [facility] CO2 23 22 - 29 meq/L [facility] BUN 16 7 - 21 mg/dL [facility] Creatinine 0.99 0.57 - 1.25 mg/dL [facility] Glucose 87 70 - 105 mg/dL [facility] Calcium 8.6 8.4 - 10.2 mg/dL [facility] EGFR 70Comment: ESTIMATED GFR IS mL/min/1.73 sq [facility] NOT ACCURATE CREATININE [facility] CLEARANCE IN PREDICTING GLOMERULAR FILTRATION RATE. ESTIMATED GFR IS NOT APPLICABLE FOR DIALYSIS PATIENTS. Specimen Blood Narrative Performed At Precinct Police Captain KELLEE Griggs [facility] Performing Organization Address City/State/[facility] Ph one Number [address] [facility] * Troponin I (10/19/2019 4:18 AM CDT) Only the most recent of 7 results within the time period is included. Troponin I 4.93 (HH) 0.00 - 0.03 ng/mL [facility] Specimen Blood Narrative Performed At Troponin I (TnI) levels must be interpreted in the co ntext of the presenting [facility] symptoms and the clinical findings. Elevated TnI leve ls indicate myocardial [facility] damage, but are not specific for ischem ic heart disease. Elevated TnI levels are seen in patients with other cardiac con ditions (including myocarditis and congestive heart failure), and slight T nI elevations occur in patients with other conditions, including sepsis, john al failure, acidosis, acute neurological disease, and persistent tachyarrhythmia . Precinct Police Captain ID - PIAYA L Performing Organization Address [facility] one Number [address] [facility] * Prothrombin time/INR (10/19/2019 4:18 AM CDT) Protime 14.2 11.9 - 14.2 seconds [facility] INR 1.1 <=5.9 [facility] Specimen Blood Narrative Performed At Effective 12/19/2018: PT Reference Range Change [facility] New: 11.9-14.2Previous: 11.7-14.7 [facility] MEDICAL NTER RECOMMENDED COUMADIN/WARFARIN INR THERA PY RANGES STANDARD DOSE: 2.0-3.0Includes: PRO PHYLAXIS for venous thrombosis, systemic embolization; TREATMENT for venous thro mbosis and/or pulmonary embolus. HIGH RISK: Target INR is 2.5-3.5 for pa tients wiht mechanical heart valves. Performing Organization Address [facility] one Number [address] [facility] * ECHOCARDIOGRAM REPORT - SCAN (10/18/2019 9:12 PM CDT) Narrative Performed At This result has an attachment that is n ot available. * POC-Glucose meter (10/18/2019 4:23 PM CDT) Only the most recent of 3 results within the time period is included. POC-Glucose Meter 95Comment: : Notified RN/MD: 70 - 110 mg/dL [facility] TESTED AT [address], [address]: Precinct Police Captain/Lehr Stripper ID = [id number] for DEJONPARMJITNEDRA ANGELULI Specimen Blood Performing Organization Address [facility] one Number [address] [facility] * 2D Echo W/Doppler(CW/PW/Color) (10/18/2019 7:39 AM CDT) Ejection Fraction [facility] ECHO HEART[facility] Specimen Narrative Performed At Transthoracic Echocardiography Report (TTE) [facility] ECH O HEARTLAB Demographics [facility] Patient NameTAYLORLICHA of Study10/18/2019 SHIVAM Female Visit [id number] Race Unknown Room [id number] Number Date of 1960 ReferringGuilherme Physician CassiusMD Age 58 year(s)Network Internship Eusebio Jasso Licensed Investment Sales Assistant Kiran Roberts Interpreting Poli Juarez MD Physician Procedure Type of Study TTE procedure:2DECHO W DO PPLER(CW/PW/COLOR) (STAT) Indications:Acute Chest Pain/ Suspected CAD. Clinical History HGB 14.5 HCT 43.6 % CAD HTN NSTEMI ACUTE CO L CATH & PCI CORONARY ARTERY BYPASS [...] Study 10/18/2019 SHIVAM Gender Female Visit Number [id number] Race Unknown Room Number 2C21 Number Date of 1960 Referring Physician PHILIPPE Duron Age 58 year(s) Network Internship Eusebio Jasso Licensed Investment Sales Assistant Kiran Roberts Interpreting Poli Juarez MD Physician Procedure Type of Study TTE procedure:2DECHO W DOPPLER(CW/PW/COLOR) (STAT) Indications:Acute Chest Pain/ Suspected CAD. Clinical History HGB 14.5 HCT 43.6 % CAD HTN NSTEMI ACUTE CO L CATH & PCI CORONARY ARTERY BYPASS [...] Performing Organization Address City/State/Zipcode Ph one Number [facility]CHO [facility] * CBC with platelet count + automated diff (10/18/2019 4:41 AM CDT) Only the most recent of 2 results within the time period is included. WBC 8.8 3.5 - 10.5 K/L [facility] RBC 4.55 3.93 - 5.22 M/L [facility] Hemoglobin 14.5 11.2 - 15.7 GM/DL [facility] Hematocrit 43.6 34.1 - 44.9 % [facility] MCV 95.8 (H) 79.4 - 94.8 fL [facility] MCH 31.9 25.6 - 32.2 pg [facility] MCHC 33.3 32.2 - 35.5 GM/DL [facility] RDW 12.8 11.7 - 14.4 % [facility] Platelets 242 150 - 450 K/CU MM [facility] MPV 11.2 9.4 - 12.3 fL [facility] nRBC 0 0 - 0 /100 WBC [facility] % Neutros 64 % [facility] % Lymphs 23 % [facility] % Monos 11 % [facility] % Eos 1 % [facility] % Baso 1 % [facility] # Neutros 5.70 1.56 - 6.13 K/L [facility] # Lymphs 2.05 1.18 - 3.74 K/L [facility] # Monos 0.96 (H) 0.24 - 0.36 K/L [facility] # Eos 0.04 0.04 - 0.36 K/L [facility] # Baso 0.05 0.01 - 0.08 K/L [facility] Immature 1 0 - 1 % [facility] Granulocytes-Relative [facility] Specimen Blood Performing Organization Address City/State/Zipcode Ph one Number [facility] [address] [place], [place] [address] [facility]ENTER * POC ACTIVATED CLOTTING TIME (10/17/2019 8:39 PM CDT) Activated Clotting Time 334Comment: : 74-137 seconds, sec [facility] Baseline: TESTED AT [facility] [address] [facility], [address]: Precinct Police Captain/Lehr Stripper ID = [id number] for CONCEPCION MONTENEGRO Specimen Blood Performing Organization Address [facility] one [address] [facility] * B-type Natriuretic Factor (BNP) (10/17/2019 6:46 PM CDT) BNP 198 (H) 0 - 100 pg/mL [facility] Specimen Blood Narrative Performed At Precinct Police Captain ID - DB [facility] Performing Organization Address [facility] one [address] [facility] * XR chest 1 view portable [...] 420 ms QTC Calculation(Bazett) 433 ms P Whitman 58 degrees R Whitman 60 degrees T Whitman 133 degrees Normal sinus rhythm Possible Left [...] 420 ms QTC Calculation(Bazett) 433 ms P Whitman 58 degrees R Whitman 60 degrees T Whitman 133 degrees Normal sinus rhythm Possible Left atrial enlargement ST & T wave abnormality, consider lateral ischemia Abnormal ECG No previous ECGs available Confirmed by MD SMITH JOSEPH P ([id number]) on 10/18/2019 6:34:19 AM Performing Organization Address City/State/Zipcode Ph one Number GE MUSE after 03/16/2019 Advance Directives For more information, please contact: [facility] [address] [place] [address] Date Inactivated Comments Code Status [...]
--- NOTE | 2020-03-16 03:41 | NUR ---
PT REMAINS AAOX3, RESP ARE EVEN AND UNLABORED, O2 SAT RA 97%; PT DENIES ANY PAIN OR DISCOMFORT; DENIES ANY NEEDS OR CONCERNS AT THI TIME
[2020-03-16 03:53] LABS: AMPHETAMINES SCREEN,URINE NEGATIVE (NEGATIVE); BENZODIAZEPINES SCREEN,URINE NEGATIVE (NEGATIVE); PHENCYCLIDINE SCREEN,URINE NEGATIVE (NEGATIVE)
--- NOTE | 2020-03-16 04:09 | NUR ---
BLOOD OBTAINED FOR LAB ANALYSIS
[2020-03-16 04:31] LABS: CREATINE KINASE MB 16.9 ng/mL (0-5.0)
--- NOTE | 2020-03-16 04:40 | NUR ---
ER MD SPOKE TO ROOM SERVICE RUNNER, DR. Alfred VIDAL - INFORMED OF PTS STATUS, ELEVATED TROPONIN; NO NEW ORDERS RECEIVED AT THIS TIME
[2020-03-16] MEDS: ENOXAPARIN SODIUM INJ 100 MG/ML SYR SC SCH ×2 (06:27→15:55)
--- NOTE | 2020-03-16 07:18 | NUR ---
pt was asleep at first, pt awoke. pt placed back on telemonitor. pt aaox4. pt denies any cp and no sob. vss. updated plan of care. boards update. sinus no ectopy. pt states headache. pt does have nitro paste on. call being placed to attending regarding breakfast status and headache.
--- NOTE | 2020-03-16 07:32 | NUR ---
called and spoke with kristie ma in director of labor relations. pt is not on the board.
--- NOTE | 2020-03-16 08:11 | NUR ---
food tray here
[2020-03-16] MEDS ORDERED: ACETAMINOPHEN 325 MG TAB ONE (08:27)
[2020-03-16] MEDS ORDERED: ISOSORBIDE MONO60 MG (12:13)
[2020-03-16] MEDS ORDERED: CARVEDILOL6.25 MG (12:13)
[2020-03-16] MEDS ORDERED: ATORVASTATIN CA40 MG (12:13)
[2020-03-16] MEDS ORDERED: ASPIRIN EC81 MG (12:13)
[2020-03-16] MEDS ORDERED: RANOLAZINE ER500 MG (12:13)
[2020-03-16] MEDS ORDERED: ULTRAM 50MG50 MG (12:13)
[2020-03-16] MEDS ORDERED: AMITRIPTYLINE H25 MG (12:13)
[2020-03-16] MEDS ORDERED: PRASUGREL HCL10 MG (12:13)
--- NOTE | 2020-03-16 12:28 | NUR ---
CALLED LASTING FLOORWORKER LOOKING FOR DR ROBERSON/Kirit VIDAL.
[2020-03-16 12:45] VITALS: BP_SYST 154; BP_SYST 174; BP_DIAS 111; BP_DIAS 93
[2020-03-16 12:46] VITALS: BP 174/93
--- NOTE | 2020-03-16 12:48 | Consultation ---
DATE OF CONSULTATION: 03/16/2020 Cardiology Consultation REQUESTING PHYSICIAN: Dr. Borjas. REASON FOR CONSULTATION: [id number]-ZR-[id number] myocardial infarction. HISTORY OF PRESENT ILLNESS: This is a 59-year-old woman with history of coronary artery disease, status post three-vessel CABG in 2013 and hypertension, who presents with complaints of chest pain. The patient reports she began having chest pain on Monday. This is associated with shortness of breath and diaphoresis, 10/10 in severity. She was unable to characterize the pain, but noted the pain lasted hours. There were no aggravating or alleviating factors. The pain worsened last night, so she presented to the ER for further evaluation. She denies any edema, orthopnea, or PND. Of note, she reports she underwent cardiac catheterization in October of this year by Dr. Beltre and had no intervention performed possibly due to small vessel disease based on the patient's description. REVIEW OF SYSTEMS: Negative except as per HPI. PAST MEDICAL HISTORY: 1. Coronary artery disease, status post three-vessel CABG in 2013. 2. Hypertension. PAST SURGICAL HISTORY: 1. Three-vessel CABG. 2. Hysterectomy. 3. Tubal ligation. 4. Right hand surgery. ALLERGIES: PLEASE SEE EMR. MEDICATIONS: Please see medication list. SOCIAL HISTORY: She smokes half pack-a-day for the last 40 years. Occasional beer. No drugs. FAMILY HISTORY: Denies. PHYSICAL EXAMINATION: VITAL SIGNS: Temperature 97.9 degrees, pulse 87, respiratory rate 14, blood pressure 174/71, and oxygen saturation 98% on 3 L nasal cannula. GENERAL: Obese woman, in no acute distress. HEENT: Normocephalic and atraumatic. Pupils equal. No scleral icterus. NECK: Supple. No thyromegaly or cervical lymphadenopathy. No carotid bruits. LUNGS: Clear to auscultation bilaterally. No wheeze or crackles. CARDIAC: Normal rate. Regular rhythm. No murmur. Normal S1 and S2. ABDOMEN: Soft and nontender. EXTREMITIES: No edema. NEUROLOGIC: Nonfocal exam. LABORATORY DATA: Sodium 140, potassium 4.6, chloride 106, CO2 22, BUN 17, and creatinine 1.04. Troponin 0.982. WBC 8.37, hemoglobin 14, hematocrit 42.7, and platelets 263. EKG; normal sinus rhythm, LVH with repolarization abnormality. Chest x-ray, no acute thoracic radiographic abnormality. IMPRESSION: 1. Zsa-LR-[id number] myocardial infarction. 2. Coronary artery disease, status post three-vessel coronary artery bypass grafting in 2013. 3. Hypertension. RECOMMENDATIONS: N.p.o. Plan to proceed with cardiac catheterization to evaluate coronary anatomy today given rising troponin. Start statin. Continue therapeutic dosing of Lovenox. We will add beta blockade for blood pressure and antianginal therapy. Further recommendations pending test results. Thank you for this consult. We will continue to follow. Lety Munson MD ABS/MODL /[id number]
[2020-03-16] MEDS ORDERED: HEPARIN SOD/SOD CHLORIDE 2,000 ML ONE (13:26)
[2020-03-16] MEDS ORDERED: LIDOCAINE HCL 2% LOCAL 20 ML VIAL ONE (13:26)
[2020-03-16] MEDS ORDERED: IOPAMIDOL 370 MG/ML 200 ML INFUS..BTL INJ ONE (13:27)
[2020-03-16] MEDS ORDERED: SODIUM CHLORIDE 0.9% 1000ML 1,000 ML ONE (13:27)
[2020-03-16] MEDS ORDERED: DOCUSATE SODIUM 100 MG CAP PO PRN (13:45)
[2020-03-16] MEDS ORDERED: HYDRALAZINE HCL 20 MG/ML VIAL IV PRN (13:45)
--- NOTE | 2020-03-16 13:52 | NUR ---
PATIENT CURRENTLY OFF UNIT FOR SCHEDULED HEART CATH
[2020-03-16] MEDS ORDERED: FENTANYL CITRATE/PF 100MCG/2 ML INJ ONE (14:03)
[2020-03-16] MEDS ORDERED: MIDAZOLAM HCL 2 MG/2 ML VIAL ONE (14:03)
--- NOTE | 2020-03-16 15:10 | NUR ---
AAOX3. ACYANOTIC. RESTING IN BED IN SUPINE POSITION. NO DISTRESS NOTED. TEGADERM DRESSING NOTED OVER RIGHT GROIN. NO ACTIVE BLEEDING NOTED. SOFT UPON PALPATION. CALL LIGHT IN REACH. SIDE RAILS UP X2. BED LOW AND LOCKED. REMINDED PATIENT TO LAY FLAT FOR THE NEXT 2 HOURS UNTIL 5PM. PATIENT VERBALIZED UNDERSTANDING.
[2020-03-16 16:00] VITALS: BP 182/108
[2020-03-16] MEDS ORDERED: CARVEDILOL 12.5 MG TAB PO SCH (17:00)
[2020-03-16 18:55] VITALS: BP 136/80
--- NOTE | 2020-03-16 18:56 | NUR ---
PATIENT SITTING UPRIGHT WATCHING TELEVISION AND EATING A SANDWICH. NO DISTRESS NOTED. NO BLEEDING NOTED TO PUNCTURE SITE OF RIGHT GROIN AREA.
--- NOTE | 2020-03-16 19:10 | NUR ---
BEDSIDE SHIFT REPORT RECEIVED. PATIENT IS RESTING IN BED, AA0X3. REPS EVEN AND UNLABORED. NO ACUTE DISTRESS NOTED. TELE IN PLACE. S/P LEFT HEART CATH. NO S/S OF BLEEDING TO PUNCTURE SITE OF RIGHT GROIN. EDUCATED PT ABOUT FALL PRECAUTIONS. PT VERBALIZED UNDERSTANDING. CALL LIGHT WITH IN EASY REACH. INSTRUCTED PT TO USE CALL LIGHT FOR ALL THE NEEDS. BED IS LOW AND LOCKED. SIDE RAILS X2. BED ALARM IS ON. PT DENIES NEEDS AT THIS TIME. CONTINUE TO MONITOR CLOSELY
[2020-03-16 20:00] VITALS: BP 154/92
[2020-03-16] MEDS ORDERED: ATORVASTATIN 40 MG TAB PO SCH (21:00)
--- NOTE | 2020-03-16 21:21 | Operative Report ---
DATE OF PROCEDURE: 03/16/2020 SURGEON: Yovanny Emmanuel MD CARDIAC CATHETERIZATION REPORT INDICATIONS FOR PROCEDURE: Elevated troponins. PREPROCEDURE: The risks, benefits, and alternative of treatment were explained to the patient prior to the procedure. Informed consent was documented in the medical record. MEDICATIONS: Please see nursing notes for medications administered throughout the procedure. PROCEDURES PERFORMED: 1. Coronary angiography. 2. Bypass graft angiography. 3. Left heart catheterization. 4. Right femoral angiography. 5. Mynx vascular closure device. 6. Moderate sedation time, 30 minutes. PROCEDURE DETAILS: The patient was brought to the cardiac catheterization laboratory in a fasting state. Right groin was prepped and draped in a sterile fashion. Access to the right common femoral artery was obtained using a modified Seldinger technique under ultrasound guidance using micropuncture equipment. A 6-Colombian sheath was inserted into the right common femoral artery without significant difficulty. Coronary angiography was performed using 5-Colombian JL4 and JR4 diagnostic catheters. Bypass graft angiography was performed using a 5-Colombian JR4 catheter. All catheters were removed over a wire. There were no immediate complications. The site was closed using Mynx vascular closure device. The patient tolerated the procedure well. There were no immediate complications. SIGNIFICANT FINDINGS: Left main large vessel severely calcified, 90% distal left main stenosis into the LAD for bifurcation. LAD large vessel, CLINICAL RADIOLOGIST in the proximal portion, one large upper branch prior to the CLINICAL RADIOLOGIST, left circumflex, nondominant vessel CLINICAL RADIOLOGIST of the left circumflex in-stent CLINICAL RADIOLOGIST. RCA; severely calcified large dominant vessel. CLINICAL RADIOLOGIST ostially and proximally. Distal RCA has a very large via SVG to RCA graft. SVG to RCA widely patent. SVG to OM widely patent. SARAH to LAD is widely patent. Left heart catheterization demonstrated LV end-diastolic pressure of 20 to 24 mmHg. There was no gradient across aortic valve. Femoral angiography demonstrated 98% ostial right SFA stenosis that was severely calcified. Arteriotomy in the common femoral artery. GRAFTS AND IMPLANTS: Mynx vascular closure device. SPECIMENS REMOVED: None. ESTIMATED BLOOD LOSS: 20 mL. COMPLICATIONS: None. FINAL RECOMMENDATIONS: 1. Continue optimal medical therapy and risk factor control. 2. Followup as an outpatient in 1 to 2 weeks post procedure. MD PIERRE Harris/JESSICA /[id number]
[2020-03-16 22:19] VITALS: BP 154/92
[2020-03-17] VITALS: BP 147/91
[2020-03-17] MEDS: ENOXAPARIN SODIUM INJ 100 MG/ML SYR SC SCH ×2 (03:44→16:17)
[2020-03-17 04:00] VITALS: BP 144/76
--- NOTE | 2020-03-17 04:22 | History and Physical ---
CHIEF COMPLAINT: Chest pain. HISTORY OF PRESENT ILLNESS: A 59-year-old female, very noncompliant with the medical care, has multiple comorbidities. Of note, she has a 3-vessel CABG, hypertension, CAD, comes into the ED with complaints of chest pain that began on Monday. She reports shortness of breath, diaphoresis, 10/10 in severity. She reports the chest pain lasts for hours. Denies any shortness of breath or orthopnea. She recently underwent cardiac cath in October this year by Dr. Beltre. No intervention was needed. The patient is seen and evaluated at bedside on the medical floor. She is currently doing well, no other issues at this time. The patient was evaluated post catheterization and no PCI was needed. REVIEW OF SYSTEMS: Pertinent positives: Chest pain, shortness of breath. The rest of 14-point review of systems was reviewed with the patient and are negative. ALLERGIES: NO KNOWN DRUG ALLERGIES. HOME MEDICATIONS: 1. Aspirin. 2. Prasugrel. 3. Ranexa. 4. Tramadol. 5. Atorvastatin. 6. Coreg. 7. Isosorbide mononitrate. 8. Amitriptyline. PAST MEDICAL HISTORY: CAD, 3-vessel CABG, noncompliant, hypertension. PAST SURGICAL HISTORY: Three-vessel CABG, hysterectomy, tubal ligation, right hand surgery. FAMILY HISTORY: None. SOCIAL HISTORY: She still smokes cigarettes for more than 40 years. Social drinker. No drugs. PHYSICAL EXAMINATION: VITAL SIGNS: She is afebrile. Temperature 97.9, pulse 88, respiratory rate is 22, blood pressure 182/108, very noncompliant with her meds, pulse ox 100% on room air. GENERAL: Not in acute distress. Alert and oriented x3. Cooperative on examination. HEENT: Head; normocephalic, atraumatic. Eyes; pupils are equal, round, and reactive to light bilaterally. Extraocular movements intact bilaterally. Throat; no evidence of erythema or exudates in the posterior pharynx. Has poor dentition. NECK: Supple. Good range of motion. PULMONARY: Clear to auscultation bilaterally. No wheezing, no rales, no rhonchi, no crackles appreciated. CARDIOVASCULAR: Positive S1 and S2. No murmurs, rubs, or gallops appreciated. ABDOMEN: Soft, nondistended, and nontender to palpation. Bowel sounds present. MUSCULOSKELETAL: Strength is 5/5 throughout. No evidence of any muscle deficits on examination. No weakness appreciated. NEUROLOGIC: Cranial nerve II through XII grossly intact. No evidence of any neurological deficits on exam. SKIN: Intact. Warm to touch. Good cap refill. PSYCHIATRIC: Normal affect and mood. EXTREMITIES: No edema. Good range of motion throughout. LABORATORY FINDINGS: Show white count 8.3, hemoglobin 14, hematocrit 42, platelets of 253. Chemistry; sodium 140, potassium 4.2 chloride 106, bicarb 22, anion gap of 15, BUN 17, creatinine 1, glucose 124. Calcium is 8.7, total bilirubin 0.58 ALT 57, alkaline phosphatase 93. Troponin . Total protein 8.8, albumin 3.3. LDL was 60. Urine drug screen negative. Coronavirus is still pending. DIAGNOSTIC STUDIES: Chest x-ray shows no acute findings. IMPRESSION: 1. Chest pain, rule out acute coronary syndrome. 2. History of 3-vessel coronary artery bypass graft with coronary artery disease. 3. Chronic smoker. 4. Medical noncompliance. 5. Hypertension. PLAN: At this time, the patient did have a mild elevation of troponin. Continue with cardiac protective medications. The patient did undergo a left heart catheterization and I evaluated her post heart catheterization. No PCI was needed. She will continue with same cardioprotective medications with no changes. Resume same home medications. Resume her diet. Put on Lovenox for DVT prophylaxis. If cleared by Cardiology, discharge to home tomorrow. MD DONNY Islas/MODL /[id number]
--- NOTE | 2020-03-17 05:00 | NUR ---
PATIENT C/O PAIN TO RIGHT GROIN AND RADIATED TO HER THIGH AND LEG. S/P HEART CATH 03/16, NO S/S OF BLEEDING TO PUNCTURE SITE, SOFT TO TOUCH. PAGED NATIONAL ACCOUNTS RECRUITER. LEFT A MESSAGE TO SENIOR SALES REPRESENTATIVE PHYSICIAN. AWAITING FOR MD TO CALL BACK
--- NOTE | 2020-03-17 05:19 | NUR ---
NOTIFIED DR BILLINGS PATIENT C/O PAIN TO RIGHT GROIN AND RADIATED TO HER THIGH AND LEG. S/P HEART CATH 03/16, NO S/S OF BLEEDING TO PUNCTURE SITE, SOFT TO TOUCH. NEW ORDER RECEIVED.
[2020-03-17] MEDS: HYDROCODONE/APAP 5MG-325MG TAB PO PRN ×2 (05:27→11:50)
--- NOTE | 2020-03-17 06:00 | NUR ---
PAGED RN NURSERY AGAIN AND LEFT MESSAGE TO ELECTRONIC TESTER PHYSICIAN. PATIENT IS STILL C/O PAIN TO RIGHT THIGH WITH PO PAIN MED. AWAITING FOR MD TO CALL BACK
--- NOTE | 2020-03-17 06:15 | NUR ---
SPOKE TO DR HDEZ. NEW ORDER RECEIVED.
[2020-03-17] MEDS ORDERED: MORPHINE SULFATE INJ 4 MG/ML INJ 1ML IV PRN (06:35)
[2020-03-17 07:20] LABS: BASOPHILS # (AUTO) 0.1 (0.0-0.1); BASOPHILS % 1.2 % (0.0-1.0); EOSINOPHILS # (AUTO) 0.2 (0.0-0.4); EOSINOPHILS % 2.7 % (0.0-6.0); HEMATOCRIT 43.7 % (34.2-44.1); HEMOGLOBIN 14.2 g/dL (12.0-16.0); LYMPHOCYTES # (AUTO) 2.2 (1.0-3.2); LYMPHOCYTES % 33.2 % (18.0-39.1); MEAN CORPUSCULAR HEMOGLOBIN 31.6 pg (28-32); MEAN CORPUSCULAR HGB CONC 32.5 g/dL (31-35); MEAN CORPUSCULAR VOLUME 97.1 fL (81-99); MONOCYTES # (AUTO) 0.9 (0.2-0.8); MONOCYTES % 12.7 % (4.4-11.3); NEUTROPHILS # (AUTO) 3.3 (2.1-6.9); NEUTROPHILS % 49.5 % (38.7-80.0); PLATELET COUNT 205 x10e3/uL (140-360); RED CELL DISTRIBUTION WIDTH 12.8 % (11.7-14.4)
[2020-03-17 07:35] LABS: ANION GAP 14.4 mmol/L (8-16); BLOOD UREA NITROGEN 13 mg/dL (7-26); BUN/CREATININE RATIO 14 (6-25); CALCIUM 8.6 mg/dL (8.4-10.2); CARBON DIOXIDE 21 mmol/L (22-29); CHLORIDE 106 mmol/L (98-107); CREATININE, SERUM 0.92 mg/dL (0.57-1.11); EST GLOMERULAR FILTRATION RATE > 60 ML/MIN (60-); GLUCOSE 128 mg/dL (74-118); POTASSIUM 3.4 mmol/L (3.5-5.1); SODIUM 138 mmol/L (136-145)
[2020-03-17 07:47] LABS: CHOL/HDL RATIO 3.1 (3.0-3.6)
[2020-03-17 07:59] VITALS: BP 149/73
[2020-03-17 08:13] VITALS: BP 149/73
[2020-03-17] MEDS ORDERED: ASPIRIN 325 MG TAB PO SCH (09:00)
[2020-03-17] MEDS ORDERED: AMITRIPTYLINE HCL 25 MG TAB PO SCH (09:00)
[2020-03-17] MEDS ORDERED: ASPIRIN 81 MG ENTERIC COATED PO SCH (09:00)
--- NOTE | 2020-03-17 11:50 | NUR ---
spoke to Dr. Alves , she stated pt can go home from her stand point.
[2020-03-17 12:00] VITALS: BP 163/109
--- NOTE | 2020-03-17 12:22 | NUR ---
pt had arterial duplex done at bedside.
--- NOTE | 2020-03-17 13:10 | NUR ---
Dr. Woo here to see pt, and explained to pt, she may have discomfort at the site and leg area. but here test and arterial duplex look good.
[2020-03-17] MEDS ORDERED: POTASSIUM CHLORIDE 20 MEQ TAB CR PO ONE (13:30)
--- NOTE | 2020-03-17 13:34 | NUR ---
pt got up up and walked in her room and stated , she feel so much better, all she need to do is walk, pt has no c/o of pain to her right leg at this time, will cont to monitor.
[2020-03-17] MEDS ORDERED: FUROSEMIDE INJ 10 MG/ML 4 ML VIAL IV NR (15:30)
[2020-03-17 16:00] VITALS: BP 140/108
[2020-03-17] MEDS ORDERED: CARVEDILOL 12.5 MG TAB PO SCH (17:00)
--- NOTE | 2020-03-17 17:20 | Progress Note ---
DATE: 03/17/2020 Cardiology Progress Note SUBJECTIVE: The patient denies chest pain or shortness of breath. She does complain of pain at her groin. OBJECTIVE: VITAL SIGNS: Temperature 97.5 degrees, pulse 70, respiratory rate 20, blood pressure 153/109, and oxygen saturation 95% on 3 L nasal cannula. GENERAL: Morbidly obese woman, in no acute distress. Awake and alert. LUNGS: Clear to auscultation bilaterally. No wheezes or crackles. CARDIOVASCULAR: Normal rate. Regular rhythm. No murmur. Normal S1 and S2. ABDOMEN: Soft and nontender. EXTREMITIES: No edema. Right groin tender to palpation, however, no bruit or hematoma appreciated. CARDIAC MEDICATIONS: Aspirin 81 mg p.o. daily, Lovenox 100 mg subcutaneous q.12 hours, atorvastatin 80 mg p.o. at bedtime, and carvedilol 25 mg p.o. b.i.d. LABORATORY DATA: WBC 6.75, hemoglobin 14.2, hematocrit 43.7, and platelets 205. Sodium 138, potassium 3.4, chloride 106, CO2 21, BUN 13, and creatinine 0.92. Telemetry was personally reviewed and interpreted, revealing normal sinus rhythm. IMPRESSION: 1. Btu-FL-sbcrzdntm myocardial infarction. 2. Coronary artery disease, status post three-vessel coronary artery bypass grafting. 3. Hypertension, poorly controlled. 4. Peripheral arterial disease with significant disease of the right SFA. RECOMMENDATIONS: The patient was taken to the cardiac catheterization laboratory for given [id number]-QE-[id number] myocardial infarction. She was found to have distal left main disease with INSPECTOR MECHANICAL of the proximal LAD, INSPECTOR MECHANICAL of the left circumflex, and INSPECTOR MECHANICAL of the RCA. She had patent SVG to RCA, patent SVG to OM, and patent SARAH to LAD. No intervention was performed. However, she was noted to have significant ostial right SFA stenosis on femoral angiography. She will need intervention as an outpatient. In the meantime, continue aspirin and prasugrel. LDL is controlled. Continue atorvastatin at current dose. Titrate antianginal therapy. Carvedilol has been increased. Recommend adding amlodipine if blood pressure remains elevated. Given elevated LVEDP, one dose of IV Lasix. Thank you for this consult. We will continue to follow. MD BO Mcintosh/MADDIEL /[id number]
--- NOTE | 2020-03-17 18:10 | NUR ---
pt discharged home, with instruction to follow up with PCP, and hydrometeorological technician, pt was educated on his mediations, iv site removed catheter tip intact.
--- NOTE | 2020-03-18 05:03 | Discharge Summary ---
FINAL DISCHARGE DIAGNOSES: 1. Chest pain, status post left heart catheterization with no PCI needed. 2. History of coronary artery disease/history of 3-vessel coronary artery bypass graft. 3. Chronic smoker. 4. Medical noncompliance. 5. Hypertension. 6. Drug-seeking behavior. CONSULTANTS: Cardiology. PHYSICAL EXAMINATION: VITAL SIGNS: Temperature 97.4, pulse 74, respiratory rate 20, blood pressure 140/108, pulse ox 100% on room air. LABORATORY FINDINGS: Show white count 6.7, hemoglobin 14, hematocrit 43.7, platelets of 205. Chemistry; sodium 138, potassium 3.4 replaced, chloride 106, bicarb 21, anion gap of 14, BUN 13, creatinine 0.92, glucose 128. Calcium is 8.6, total bilirubin 0.5, AST 66, ALT 67. Her troponin was 0.070 and 0.982. Albumin was 3.3, LDL 61. Urine drug screen was negative. SEROLOGY: Coronavirus still pending. IMAGING STUDIES: Chest x-ray was found to be normal. Right lower extremity ultrasound shows no evidence of any pseudoaneurysm or any kind of bleeding. The patient does have right lower extremity decreased flow secondary to PAD, which will be followed up as an outpatient according to Cardiology. HOSPITAL COURSE: A 59-year-old female, history of CAD, 3-vessel CABG, very noncompliant drug-seeking behavior. She came in with complaints of chest pain, concerned to be unstable in nature, prompting Cardiology consultation and emergent left heart catheterization. Heart catheterization was performed by Dr. Yovanny Emmanuel. Intel Analyst was Dr. Munson, in which the patient underwent heart catheterization on 03/16/2020, and no PCI was indicated. In fact, per Cardiology's note, we will continue with cardioprotective medications and continue with the same medications that she was on at home. We did increase the dose of Coreg, but no PCI was needed or indicated. The patient was otherwise doing well with no complaints. She denies any chest pain prior to being discharged to home. She was complaining of right lower extremity pain near the incision site of the heart catheterization, in which a ultrasound Doppler was performed, which was read by Cardiology, which was found to be normal with no evidence of any kind of pseudoaneurysm or any evidence of bleeding. In fact, the patient's hemoglobin was stable over the course of 2 days. Hemoglobin of 14.2. Her blood pressure was stable. Cardiology spoke with me, reviewed the case. The patient was cleared for discharge by Cardiology. The patient's pain is likely secondary to the incision site from the catheterization, as the patient is morbidly obese and likely the trocar she said was placed likely led to some pain in that right thigh. She is otherwise doing well, back to baseline in fact. She was cleared to go home by Cardiology and the patient was ready for discharge to home. On the day of discharge, vital signs were stable, labs reviewed and stable. The patient is seen and evaluated, and examined thoroughly on the day of discharge. No other complaints. The patient verbalized understanding and agrees to plan of care to follow up accordingly as an outpatient with primary care physician in 1 week and the half section ironer in 2 weeks' time. The patient was cleared for discharge to home and was eager to being discharged. MEDICATIONS: See med reconciliation form. DISPOSITION: Home. CONDITION: Stable. DIET: Heart healthy. In the event of any worsening symptoms, the patient was advised to come back to the ED for further evaluation. Discharge summary took greater than 35 minutes. Once again, the patient was educated about being compliant in followup with Cardiology as an outpatient to maintain good medical care. She was also advised to follow up with her PCP as well. The patient verbalized understanding and agrees to plan of care. The patient otherwise was pain-free prior to being discharged and she was back to normal according to the patient. MD DONNY Islas/MODJaqui /[id number]
== END 2020-03-17 18:27 | disposition home or self-care (01) ==
LOC: ER 01:51 → ERHOLD 03:17 → MED/SURG2 12:23
PROVIDERS: ADMIT Internal Medicine; ATTEND Internal Medicine
DX: I21.4 Non-ST elevation (NSTEMI) myocardial infarction (principal); R07.9 Chest pain, unspecified; Z95.5 Presence of coronary angioplasty implant and graft; Z95.1 Presence of aortocoronary bypass graft; F17.210 Nicotine dependence, cigarettes, uncomplicated; E66.01 Morbid (severe) obesity due to excess calories; I24.9 Acute ischemic heart disease, unspecified; I10 Essential (primary) hypertension; I25.10 Atherosclerotic heart disease of native coronary artery without angina pectoris; Z91.19 Patient's noncompliance with other medical treatment and regimen; Z76.5 Malingerer [conscious simulation]; I70.201 Unspecified atherosclerosis of native arteries of extremities, right leg; Z68.41 Body mass index [BMI] 40.0-44.9, adult; Z11.59 Encounter for screening for other viral diseases
CPT/HCPCS: 36415 ×2; 71045; 80048; 80053; 80061 ×2; 80307; 82550; 82553; 84484; 85025 ×2; 93005; 93459; 93926; 99284; C1760; C1769; C1887; G0378 ×2; J1650 ×2; J2001; J2250; J2270; J3010; J7030; Q9967; U0002; 99152; 99153